=== PATIENT | female | born 1940 | race Caucasian/White ===

== ENCOUNTER 2019-03-26 06:54 | Day surgery (SDC) | payer MEDICARE, OTHER ==
[~2019-03-26 06:54] MED LIST: Lactated Ringers 1,000 ML IV SCH; Lidocaine 1%/Sod Bicarbonate in NS 8.4% 1 ML Syringe IDERM PRN; Sodium Chloride 0.9% 10 ML Syringe FLUSH PRN
--- NOTE | 2019-03-26 07:19 | PCM.PREANE ---
Preanesthetic Assessment - Anesthesia/Transfusion/Family Hx Anesthesia History: Prior Anesthesia Without Reaction Family History of Anesthesia Reaction: No Transfusion History: No Prior Transfusion(s) - Review of Systems General: Other (hx of uterine cancer) Pulmonary: Shortness of Breath (with stairs) Cardiovascular: Other (HTN, AAA, CAD, echo 60-65%, EKG SB with IRBBB, LV hypertrophy) Gastrointestinal: Other (barretts esophagus, hiatal hernia) Neurological: Other (history of CVA) - Physical Assessment NPO Status Date: 03/25/19 NPO Status Time: 20:00 Vital Signs: Last Vital Signs Temp 36.9 C 03/26/19 07:05 Pulse 64 03/26/19 07:05 Resp 16 03/26/19 07:05 BP 153/94 H 03/26/19 07:05 Pulse Ox 96 03/26/19 07:05 Height: 1.57 m Weight: 78.471 kg ASA Class: 3 Mental Status: Alert & Oriented x3 Dentition: Reports: Normal Dentition Thyro-Mental Finger Breadths: 3 Mouth Opening Finger Breadths: 3 ROM/Head Extension: Full Lungs: Clear to Auscultation, Normal Respiratory Effort Cardiovascular: Regular Rate, Regular Rhythm - Allergies Allergies/Adverse Reactions: Allergies Allergy/AdvReac Type Severity Reaction Status Date / Time ezetimibe [From Zetia] Allergy Leg Cramps Verified 03/23/19 10:28 gentamicin [Gentamicin] Allergy Rash Verified 03/23/19 10:28 gluten Allergy Stomach Verified 03/23/19 10:28 Upset rosuvastatin [From Crestor] Allergy Muscle Verified 03/23/19 10:28 Aches Sulfa (Sulfonamide Allergy Cannot Verified 03/23/19 10:28 Antibiotics) Remember - Blood Blood Available: No Product(s) Available: None - Anesthesia Plan Pre-Op Medication Ordered: None - Acknowledgements Anesthesia Type Planned: MAC Pt an Appropriate Candidate for the Planned Anesthesia: Yes Alternatives and Risks of Anesthesia Discussed w Pt/Guardian: Yes Pt/Guardian Understands and Agrees with Anesthesia Plan: Yes PreAnesthesia Questionnaire HEENT History: Reports: Cataract Cardiovascular History: Reports: CAD, High Cholesterol, Hypertension, [place], Other (See Below) Other Cardiovascular History: AAA Respiratory History: Reports: None Gastrointestinal History: Reports: GI Bleed, Hemorrhoids, Hiatal Hernia, Other ( See Below) Other Gastrointestinal History: Asencio's esophagus, gastric polyp, benign fundic gland polyps of stomach Genitourinary History: Reports: None Other OB/BYN History: Uterine endometrial endocarcinoma Musculoskeletal History: Reports: Back Pain, Chronic, Other (See Below) Other Musculoskeletal History: Right lower extremity radicular pain, left plantar fasciitis Neurological History: Reports: CVA, Other (See Below) Other Neuro History: Spinal osteoarthritis with radiculopathy, lumbar DDD, tremors Psychiatric History: Reports: None Endocrine/Metabolic History: Reports: None Hematologic History: Reports: None Immunologic History: Reports: None Oncologic (Cancer) History: Reports: None Dermatologic History: Reports: None - Past Surgical History Head Surgeries/Procedures: Reports: None HEENT Surgical History: Reports: Cataract Surgery Cardiovascular Surgical History: Reports: Other (See Below) Other Cardiovascular Surgeries/Procedures: Heart Cath Respiratory Surgical History: Reports: None GI Surgical History: Reports: Cholecystectomy, Colonoscopy, EGD Female Surgical History: Reports: None Endocrine Surgical History: Reports: None Neurological Surgical History: Reports: None Musculoskeletal Surgical History: Reports: None Oncologic Surgical History: Reports: None Dermatological Surgical History: Reports: None - SUBSTANCE USE Smoking Status *Q: Former Smoker Tobacco Use Within Last Twelve Months: No Second Hand Smoke Exposure: No Recreational Drug Use History: No - HOME MEDS Home Medications: Home Meds Lisinopril 40 mg PO DAILY 03/29/14 [History] Metoprolol Succinate [Toprol XL 50mg] 50 mg PO DAILY 03/29/14 [History] Pantoprazole Sodium 40 mg PO BID 03/29/14 [History] Ranitidine [Zantac] 150 mg PO BID 03/29/14 [History] Nitroglycerin [Nitrostat] 0.4 mg SL Q5M PRN #100 tab.sl 03/30/14 [Rx] Aspirin [Halfprin] 81 mg PO DAILY 03/23/19 [History] Biotears 1 applic OP DAILY 03/23/19 [History] Calcium Carbonate/Vitamin D3 [Calcium 600 + Vit D 200] 1 tab PO BID 03/23/19 [ History] Cholecalciferol (Vitamin D3) [Vitamin D3] 1,000 unit PO BID 03/23/19 [History] Eye Promise 2 tab PO DAILY 03/23/19 [History] Iodoral 1 tab PO Q2D 03/23/19 [History] Isosorbide Mononitrate [Imdur] 30 mg PO BID 03/23/19 [History] L Acidophil/B Lactis/B Longum [Florajen3] 460 mg PO DAILY 03/23/19 [History] Magnesium 250 mg PO BID 03/23/19 [History] Potassium Gluconate [Potassium] 99 mg PO DAILY 03/23/19 [History] Simvastatin [Zocor] 5 mg PO BEDTIME 03/23/19 [History] - CURRENT (IN HOUSE) MEDS Current Meds: Current Medications Lactated Ringer's (Ringers, Lactated) 1,000 mls @ 125 mls/hr IV ASDIRECTED MARYANN Stop: 03/26/19 23:00 Lidocaine/Sodium Bicarbonate (Buffered Lidocaine 1% In Ns 8.4%) 0.25 ml IDERM ONETIME PRN PRN Reason: Prior to IV Start Stop: 03/26/19 18:00 Sodium Chloride (Saline Flush) 10 ml FLUSH ASDIRECTED PRN PRN Reason: Keep Vein Open Stop: 03/26/19 18:00
[2019-03-26] MEDS ORDERED: Propofol 200 MG/20 ML SDV ONE ×2 (07:26→08:55)
[2019-03-26] MEDS ORDERED: Ondansetron 4 MG/2 ML SDV IVPUSH PRN (08:32)
--- NOTE | 2019-03-26 08:32 | PCM48HPAN ---
Post Anesthesia Note - EVALUATION WITHIN 48HRS OF ANESTHETIC Vital Signs in Normal Range: Yes Patient Participated in Evaluation: Yes Respiratory Function Stable: Yes Airway Patent: Yes Cardiovascular Function Stable: Yes Hydration Status Stable: Yes Pain Control Satisfactory: Yes Nausea and Vomiting Control Satisfactory: Yes Mental Status Recovered: Yes Vital Signs: Last Vital Signs Temp 36.9 C 03/26/19 07:05 Pulse 64 03/26/19 07:05 Resp 16 03/26/19 07:05 BP 153/94 H 03/26/19 07:05 Pulse Ox 96 03/26/19 07:05
[2019-03-26 08:33] VITALS: PULSE 58
[2019-03-26 08:58] VITALS: BP 119/73
--- NOTE | 2019-03-27 07:28 | OR ---
DATE OF OPERATION: 03/26/2019 SURGEON: Jake Titus MD PREOPERATIVE DIAGNOSIS: Asencio's esophagus. POSTOPERATIVE DIAGNOSIS: 1. Gastritis. 2. Medium-sized hiatal hernia. 3. Asencio's esophagus. OPERATION PERFORMED: Esophagogastroduodenoscopy with biopsies. ANESTHESIA: Monitored anesthesia care. COMPLICATIONS: None. INDICATIONS AND CONSENT: Ms. Danielle is a 78-year-old old female who was diagnosed with Asencio's esophagus several years ago. Her Asencio's was without any dysplasia, therefore the patient has been followed with interval EGD and biopsies every 3 years. Her last biopsy was in 2017. Therefore, the patient was due for another surveillance esophagogastroduodenoscopy. She presented to my clinic, I evaluated the patient and deemed her a good candidate for the procedure. We discussed the risks, benefits, and alternatives. Risks discussed included bleeding and perforation. The patient understood and agreed to proceed with the procedure. Informed consent was obtained. DESCRIPTION OF PROCEDURE: The patient was taken to the procedure room, placed in left lateral decubitus position. Following induction of monitored anesthesia care, we began the procedure by inserting the esophagogastroduodenoscopy through the mouth all the way down. At about 38 cm from the incisors, there was evidence of Asencio's esophagus. This was traversed. There were no strictures. The stomach was entered as well as the duodenum up to the second portion of duodenum. Duodenum appeared normal. Duodenal bulb appeared normal. Antrum appeared slightly inflamed, therefore biopsies with cold forceps were taken here for H pylori analysis. The retroflexion revealed a medium-sized hiatal hernia, which is likely a sliding-type and upon withdrawal there was again Asencio's esophagus at the GE junction and distal esophagus. We performed biopsies at all 4 quadrants every 1 cm getting a total of 10 samples. These will be sent to the pathologist for evaluation. EBL was minimal. At this point, we put the scope back into the stomach, suctioned air, and withdrew the scope slowly. The rest of the esophagus appeared to be normal. The patient will be discharged home today. The patient will come back to clinic in 2 weeks to discuss the results of the pathology and possible followup. ESTIMATED BLOOD LOSS: MMODAL /[id number]
== END 2019-03-26 09:05 | disposition home or self-care (01) ==
LOC: JD.SDS 06:54
PROVIDERS: ATTEND Surgery
DX: K22.70 Barrett's esophagus without dysplasia (principal); K29.70 Gastritis, unspecified, without bleeding; K44.9 Diaphragmatic hernia without obstruction or gangrene; K29.50 Unspecified chronic gastritis without bleeding; K20.9 Esophagitis, unspecified; K21.9 Gastro-esophageal reflux disease without esophagitis; I10 Essential (primary) hypertension; E78.5 Hyperlipidemia, unspecified; I25.10 Atherosclerotic heart disease of native coronary artery without angina pectoris; E78.00 Pure hypercholesterolemia, unspecified; M51.16 Intervertebral disc disorders with radiculopathy, lumbar region; M47.26 Other spondylosis with radiculopathy, lumbar region; Z90.49 Acquired absence of other specified parts of digestive tract; Z79.82 Long term (current) use of aspirin; Z91.018 Allergy to other foods; Z88.8 Allergy status to other drugs, medicaments and biological substances; Z88.2 Allergy status to sulfonamides; Z87.891 Personal history of nicotine dependence
CPT/HCPCS: 43239; J2704; J7120; 00731

== ENCOUNTER 2019-08-04 01:18 | Emergency (ER) | payer MEDICARE, OTHER ==
[2019-08-04 01:26] VITALS: PULSE 60
[2019-08-04] MEDS ORDERED: Nitroglycerin 0.4 MG Tab.SL SL ONE (02:06)
[2019-08-04 02:15] VITALS: BP 138/69
--- NOTE | 2019-08-04 02:26 | EDM.PDOC ---
ED HPI GENERAL MEDICAL PROBLEM - General Chief Complaint: Chest Pain Stated Complaint: [facility] Time Seen by Provider: 08/04/19 01:27 Source of Information: Reports: Patient, Family History Limitations: Reports: No Limitations - History of Present Illness INITIAL COMMENTS - FREE TEXT/NARRATIVE: Is a 78-year-old female 10 PM this evening when she went to bed she noted an aching sensation in her left lower ribs. It was very fleeting but would continue to come again and again. She also noted that she had a couple minutes of squeezing in her back on that left side as well. She had no sweating, no shortness of breath, no radiation of the squeezing or aching into shoulder the neck area. She complains of little aching in her left ribs even as we talk. 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 Her last stress test was 1 year ago and it was a walking stress test that was normal. Says she does not really feel bad she just has that aching sensation in account of concerns her. She comes to the ER for evaluation. Left Lower Chest Pain Score (Numeric/FACES): 3 - Related Data Allergies Allergy/AdvReac Type Severity Reaction Status Date / Time ezetimibe [From Zetia] Allergy Leg Cramps Verified 08/04/19 01:26 gentamicin [Gentamicin] Allergy Rash Verified 08/04/19 01:26 gluten Allergy Stomach Verified 08/04/19 01:26 Upset rosuvastatin [From Crestor] Allergy Muscle Verified 08/04/19 01:26 Aches Sulfa (Sulfonamide Allergy Cannot Verified 08/04/19 01:26 Antibiotics) Remember Home Meds: Home Meds Lisinopril 40 mg PO DAILY 03/29/14 [History] Metoprolol Succinate [Toprol XL 50mg] 50 mg PO DAILY 03/29/14 [History] Pantoprazole Sodium 40 mg PO BID 03/29/14 [History] Nitroglycerin [Nitrostat] 0.4 mg SL Q5M PRN #100 tab.sl 03/30/14 [Rx] Aspirin [Halfprin] 81 mg PO DAILY 03/23/19 [History] Biotears 1 applic OP DAILY 03/23/19 [History] Calcium Carbonate/Vitamin D3 [Calcium 600 + Vit D 200] 1 tab PO BID 03/23/19 [History] Cholecalciferol (Vitamin D3) [Vitamin D3] 1,000 unit PO BID 03/23/19 [History] Eye Promise 2 tab PO DAILY 03/23/19 [History] Iodoral 1 tab PO Q2D 03/23/19 [History] Isosorbide Mononitrate [Imdur] 30 mg PO BID 03/23/19 [History] L Acidophil/B Lactis/B Longum [Florajen3] 460 mg PO DAILY 03/23/19 [History] Magnesium 250 mg PO BID 03/23/19 [History] Potassium Gluconate [Potassium] 99 mg PO DAILY 03/23/19 [History] Simvastatin [Zocor] 5 mg PO BEDTIME 03/23/19 [History] Famotidine 20 mg PO BID 90 Days #90 tablet 03/26/19 [Rx] Nitroglycerin 0.4 mg SL ASDIRECTED PRN #1 bottle 08/04/19 [Rx] Past Medical History HEENT History: Reports: Cataract Cardiovascular History: Reports: CAD, High Cholesterol, Hypertension, [place], Other (See Below) Other Cardiovascular History: AAA Respiratory History: Reports: None Gastrointestinal History: Reports: GI Bleed, Hemorrhoids, Hiatal Hernia, Other (See Below) Other Gastrointestinal History: Asencio's esophagus, gastric polyp, benign fundic gland polyps of stomach Genitourinary History: Reports: None 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: Uterine endometrial endocarcinoma Musculoskeletal History: Reports: Back Pain, Chronic, Other (See Below) Other Musculoskeletal History: Right lower extremity radicular pain, left plantar fasciitis Neurological History: Reports: CVA, Other (See Below) Other Neuro History: Spinal osteoarthritis with radiculopathy, lumbar DDD, tremors Psychiatric History: Reports: None Endocrine/Metabolic History: Reports: None Hematologic History: Reports: None Immunologic History: Reports: None Oncologic (Cancer) History: Reports: None Dermatologic History: Reports: None - Past Surgical History Head Surgeries/Procedures: Reports: None HEENT Surgical History: Reports: Cataract Surgery Cardiovascular Surgical History: Reports: Other (See Below) Other Cardiovascular Surgeries/Procedures: Heart Cath Respiratory Surgical History: Reports: None GI Surgical History: Reports: Cholecystectomy, Colonoscopy, EGD Female Surgical History: Reports: None Endocrine Surgical History: Reports: None Neurological Surgical History: Reports: None Musculoskeletal Surgical History: Reports: None Oncologic Surgical History: Reports: None Dermatological Surgical History: Reports: None Social & Family History - Tobacco Use Smoking Status *Q: Never Smoker - Caffeine Use Caffeine Use: Reports: Coffee - Recreational Drug Use Recreational Drug Use: No ED ROS GENERAL - Review of Systems Review Of Systems: See Below Constitutional: Denies: Fever, Chills HEENT: Reports: No Symptoms Respiratory: Denies: Shortness of Breath, Cough Cardiovascular: Reports: Chest Pain. Denies: Lightheadedness Endocrine: Reports: No Symptoms GI/Abdominal: Reports: No Symptoms : Reports: No Symptoms Musculoskeletal: Reports: No Symptoms Skin: Reports: No Symptoms Neurological: Reports: No Symptoms Psychiatric: Reports: No Symptoms Hematologic/Lymphatic: Reports: No Symptoms ED EXAM, GENERAL - Physical Exam Exam: See Below Exam Limited By: No Limitations General Appearance: Alert, WD/WN, No Apparent Distress Eye Exam: Bilateral Eye: Normal Inspection Ears: Normal External Exam Nose: Normal Inspection Throat/Mouth: Normal Lips, Normal Voice, No Airway Compromise Head: Normocephalic Neck: Supple Respiratory/Chest: No Respiratory Distress, Lungs Clear, Normal Breath Sounds Cardiovascular: Regular Rate, Rhythm, No Murmur GI/Abdominal: Soft, Non-Tender Back Exam: Full Range of Motion Extremities: Normal Inspection, Normal Range of Motion Neurological: Alert, Oriented Psychiatric: Normal Affect, Normal Mood Skin Exam: Warm, Dry EKG INTERPRETATION EKG Date: 08/04/19 Time: 01:20 EKG Interpretation Comments: EKG shows a sinus rhythm rate of 60. There is no acute ST or T wave changes. There is no ischemia noted. Course - Vital Signs Last Recorded V/S: Last Vital Signs Temp 97.8 F 08/04/19 01:24 Pulse 60 08/04/19 01:24 Resp 16 08/04/19 01:24 BP 138/69 08/04/19 02:13 Pulse Ox 99 08/04/19 01:24 - Orders/Labs/Meds Orders: Active Orders 24 hr Category Date Time Status EKG Documentation Completion [RC] ASDIRECTED Care 08/04/19 01:30 Active Chest 1V Frontal [CR] Stat Exams 08/04/19 01:30 Taken EKG 12 Lead [EK] Stat Ther 08/04/19 01:30 Ordered Labs: Laboratory Tests 08/04/19 08/04/19 08/04/19 Range/Units 01:20 01:20 01:32 WBC 4.22 (3.98-10.04) K/mm3 RBC 4.28 (3.98-5.22) M/mm3 Hgb 13.3 (11.2-15.7) gm/dl Hct 40.6 (34.1-44.9) % MCV 94.9 H (79.4-94.8) fl MCH 31.1 (25.6-32.2) pg MCHC 32.8 (32.2-35.5) g/dl RDW Std Deviation 47.5 H (36.4-46.3) fL Plt Count 220 (182-369) K/mm3 MPV 9.2 L (9.4-12.3) fl Neut % (Auto) 68.6 (34.0-71.1) % Lymph % (Auto) 15.2 L (19.3-51.7) % [place] % (Auto) 12.6 H (4.7-12.5) % Eos % (Auto) 3.1 (0.7-5.8) Baso % (Auto) 0.5 (0.1-1.2) % Neut # (Auto) 2.90 (1.56-6.13) K/mm3 Lymph # (Auto) 0.64 L (1.18-3.74) K/mm3 [place] # (Auto) 0.53 H (0.24-0.36) K/mm3 Eos # (Auto) 0.13 (0.04-0.36) K/mm3 Baso # (Auto) 0.02 (0.01-0.08) K/mm3 Sodium 138 (136-145) mEq/L Potassium 4.1 (3.5-5.1) mEq/L Chloride 101 (98-107) mEq/L Carbon Dioxide 28 (21-32) mEq/L Anion Gap 13.1 (5-15) BUN 19 H (7-18) mg/dL Creatinine 1.0 (0.55-1.02) mg/dL Est Cr Clr Drug Dosing TNP Estimated GFR (MDRD) 54 (>60) mL/min BUN/Creatinine Ratio 19.0 H (14-18) Glucose 106 (83-115) mg/dL Calcium 9.2 (8.5-10.1) mg/dL Total Bilirubin 0.5 (0.2-1.0) mg/dL AST 32 (15-37) U/L ALT 56 (14-59) U/L Alkaline Phosphatase 97 (46-116) U/L Troponin I < 0.017 (0.00-0.056) ng/mL Total Protein 7.7 (6.4-8.2) g/dl Albumin 3.6 (3.4-5.0) g/dl Globulin 4.1 gm/dL Albumin/Globulin Ratio 0.9 L (1-2) Urine Color Yellow (Yellow) Urine Appearance Clear (Clear) Urine pH 7.0 (5.0-8.0) Ur Specific [place] 1.020 (1.005-1.030) Urine Protein Negative (Negative) Urine Glucose (UA) Negative (Negative) Urine Ketones Negative (Negative) Urine Occult Blood Negative (Negative) Urine Nitrite Negative (Negative) Urine Bilirubin Negative (Negative) Urine Urobilinogen 0.2 (0.2-1.0) Ur Leukocyte Esterase 1+ H (Negative) Urine RBC Not seen (0-5) /hpf Urine WBC 5-10 H (0-5) /hpf Ur Epithelial Cells 0-5 (0-5) /hpf Urine Bacteria Rare (FEW) /hpf Urine Mucus Rare (FEW) /hpf 08/04/19 Range/Units 03:24 WBC (3.98-10.04) K/mm3 RBC (3.98-5.22) M/mm3 Hgb (11.2-15.7) gm/dl Hct (34.1-44.9) % MCV (79.4-94.8) fl MCH (25.6-32.2) pg MCHC (32.2-35.5) g/dl RDW Std Deviation (36.4-46.3) fL Plt Count (182-369) K/mm3 MPV (9.4-12.3) fl Neut % (Auto) (34.0-71.1) % Lymph % (Auto) (19.3-51.7) % [place] % (Auto) (4.7-12.5) % Eos % (Auto) (0.7-5.8) Baso % (Auto) (0.1-1.2) % Neut # (Auto) (1.56-6.13) K/mm3 Lymph # (Auto) (1.18-3.74) K/mm3 [place] # (Auto) (0.24-0.36) K/mm3 Eos # (Auto) (0.04-0.36) K/mm3 Baso # (Auto) (0.01-0.08) K/mm3 Sodium (136-145) mEq/L Potassium (3.5-5.1) mEq/L Chloride (98-107) mEq/L Carbon Dioxide (21-32) mEq/L Anion Gap (5-15) BUN (7-18) mg/dL Creatinine (0.55-1.02) mg/dL Est Cr Clr Drug Dosing Estimated GFR (MDRD) (>60) mL/min BUN/Creatinine Ratio (14-18) Glucose (83-115) mg/dL Calcium (8.5-10.1) mg/dL Total Bilirubin (0.2-1.0) mg/dL AST (15-37) U/L ALT (14-59) U/L Alkaline Phosphatase (46-116) U/L Troponin I < 0.017 (0.00-0.056) ng/mL Total Protein (6.4-8.2) g/dl Albumin (3.4-5.0) g/dl Globulin gm/dL Albumin/Globulin Ratio (1-2) Urine Color (Yellow) Urine Appearance (Clear) Urine pH (5.0-8.0) Ur Specific [place] (1.005-1.030) Urine Protein (Negative) Urine Glucose (UA) (Negative) Urine Ketones (Negative) Urine Occult Blood (Negative) Urine Nitrite (Negative) Urine Bilirubin (Negative) Urine Urobilinogen (0.2-1.0) Ur Leukocyte Esterase (Negative) Urine RBC (0-5) /hpf Urine WBC (0-5) /hpf Ur Epithelial Cells (0-5) /hpf Urine Bacteria (FEW) /hpf Urine Mucus (FEW) /hpf Meds: Medications Discontinued Medications Generic Name Dose Route Start Last Admin Trade Name Freq PRN Reason Stop Dose Admin Nitroglycerin 0.4 mg 08/04/19 02:06 08/04/19 02:13 Nitrostat SL 08/04/19 02:07 0.4 mg ONETIME ONE Administration - Radiology Interpretation Free Text/Narrative:: X-ray does not show any acute infiltrates, she does have a calcified aortic arch noted. - Re-Assessments/Exams Free Text/Narrative Re-Assessment/Exam: 08/04/19 04:25 The patient states that the nitroglycerin seemed to resolve that little ache in her left chest rib area. It has not come back and she has been feeling fine. For 2 troponins were absolutely negative her EKG does not show anything acute. I am still somewhat concerned that this could be related to her heart considering her past history. I indicated she needs to follow-up with her doctor this coming week for additional studies to her heart. And if over the weekend things get markedly worse especially with shortness of breath or sweating or nausea or any sort of radiation of pain to her neck or down her arm she needs to return to the ER. The patient states she understands Departure - Departure Time of Disposition: 04:25 Disposition: Home, Self-Care 01 Condition: Fair Clinical Impression: Discomfort of chest wall Prescriptions: Nitroglycerin 0.4 mg SL ASDIRECTED PRN #1 bottle PRN Reason: Pain Instructions: Nonspecific Chest Pain, Adult, [id number] Referrals: PCP,None [Primary Care Provider] - Forms: ED Department Discharge Additional Instructions: Do not do any strenuous work over the weekend and just rest and take it easy, if you get this chest discomfort take the nitroglycerin, however if this chest discomfort gets worse you develop nausea sweating shortness of breath or pain into your jaw or down your left arm return to the ER immediately, follow-up with your family doctor this coming week for recheck and possible additional cardiac studies, return to the ER if needed Sepsis Event Note (ED) - Evaluation Sepsis Screening Result: No Definite Risk - Focused Exam Vital Signs: Vital Signs Temp Pulse Resp BP BP Pulse Ox 08/04/19 02:13 138/69 08/04/19 01:24 97.8 F 60 16 193/103 H 99 - My Orders Last 24 Hours: My Active Orders 08/04/19 01:30 EKG Documentation Completion [RC] ASDIRECTED Chest 1V Frontal [CR] Stat EKG 12 Lead [EK] Stat - Assessment/Plan Last 24 Hours: My Active Orders 08/04/19 01:30 EKG Documentation Completion [RC] ASDIRECTED Chest 1V Frontal [CR] Stat EKG 12 Lead [EK] Stat
--- NOTE | 2019-08-06 10:13 | CR ---
Chest: Portable view of the chest was obtained. Comparison: Prior chest x-ray of 06/23/17. Heart size is within normal limits for portable technique. Tortuous thoracic aorta is noted. Lungs are clear with no acute parenchymal change. Bony structures are grossly intact. Impression: 1. Nothing acute is appreciated on portable chest x-ray. Diagnostic code #1 This report was dictated in MDT
== END 2019-08-04 04:41 | disposition home or self-care (01) ==
LOC: JD.ED 01:18
DX: R07.89 Other chest pain (principal); I10 Essential (primary) hypertension; E78.00 Pure hypercholesterolemia, unspecified; I25.10 Atherosclerotic heart disease of native coronary artery without angina pectoris; I25.2 Old myocardial infarction; Z88.8 Allergy status to other drugs, medicaments and biological substances; Z91.018 Allergy to other foods; Z88.2 Allergy status to sulfonamides; Z88.1 Allergy status to other antibiotic agents; Z79.899 Other long term (current) drug therapy; Z79.82 Long term (current) use of aspirin
CPT/HCPCS: 36415; 71045; 80053; 81001; 84484; 85025; 93005; 99285; A9270

== ENCOUNTER 2019-08-04 22:15 | Emergency (ER) | payer MEDICARE, OTHER ==
[2019-08-04 22:27] VITALS: BP 156/95; PULSE 58
--- NOTE | 2019-08-04 22:49 | EDM.PDOC ---
ED HPI GENERAL MEDICAL PROBLEM - General Chief Complaint: Chest Pain Stated Complaint: [facility] Time Seen by Provider: 08/04/19 22:16 Source of Information: Reports: Patient History Limitations: Reports: No Limitations - History of Present Illness INITIAL COMMENTS - FREE TEXT/NARRATIVE: This is a 78-year-old female. She was seen yesterday in the ER for chest tightness and upper back discomfort. An EKG did not show any acute changes then and her enzymes x2 were negative. She did receive a prescription for some nitroglycerin. Today she was sitting in a chair developed upper back discomfort took 2 nitroglycerin they did not do anything so she called the ambulance and comes back to the ER. She is not short of breath she is not sweating she has no radiation of this pain into her jaw or down her left arm. She does have a history of esophageal reflux and she does state that her upper abdomen has been uncomfortable since she ate lunch today. Presently she has no upper back discomfort and her chest tightness has resolved. She denies any acute symptoms other than the continued esophageal reflux. No history of aortic aneurysm or problems. Middle Chest Pain Score (Numeric/FACES): 2 - Related Data Allergies Allergy/AdvReac Type Severity Reaction Status Date / Time ezetimibe [From Zetia] Allergy Leg Cramps Verified 08/04/19 22:26 gentamicin [Gentamicin] Allergy Rash Verified 08/04/19 22:26 gluten Allergy Stomach Verified 08/04/19 22:26 Upset rosuvastatin [From Crestor] Allergy Muscle Verified 08/04/19 22:26 Aches Sulfa (Sulfonamide Allergy Cannot Verified 08/04/19 22:26 Antibiotics) Remember Home Meds: Home Meds Lisinopril 40 mg PO DAILY 03/29/14 [History] Metoprolol Succinate [Toprol XL 50mg] 50 mg PO DAILY 03/29/14 [History] Pantoprazole Sodium 40 mg PO BID 03/29/14 [History] Nitroglycerin [Nitrostat] 0.4 mg SL Q5M PRN #100 tab.sl 03/30/14 [Rx] Aspirin [Halfprin] 81 mg PO DAILY 03/23/19 [History] Biotears 1 applic OP DAILY 03/23/19 [History] Calcium Carbonate/Vitamin D3 [Calcium 600 + Vit D 200] 1 tab PO BID 03/23/19 [History] Cholecalciferol (Vitamin D3) [Vitamin D3] 1,000 unit PO BID 03/23/19 [History] Eye Promise 2 tab PO DAILY 03/23/19 [History] Iodoral 1 tab PO Q2D 03/23/19 [History] Isosorbide Mononitrate [Imdur] 30 mg PO BID 03/23/19 [History] L Acidophil/B Lactis/B Longum [Florajen3] 460 mg PO DAILY 03/23/19 [History] Magnesium 250 mg PO BID 03/23/19 [History] Potassium Gluconate [Potassium] 99 mg PO DAILY 03/23/19 [History] Simvastatin [Zocor] 5 mg PO BEDTIME 03/23/19 [History] Famotidine 20 mg PO BID 90 Days #90 tablet 03/26/19 [Rx] Nitroglycerin 0.4 mg SL ASDIRECTED PRN #1 bottle 08/04/19 [Rx] Past Medical History HEENT History: Reports: Cataract Cardiovascular History: Reports: CAD, High Cholesterol, Hypertension, LA, Other (See Below) Other Cardiovascular History: AAA Respiratory History: Reports: None Gastrointestinal History: Reports: GI Bleed, Hemorrhoids, Hiatal Hernia, Other (See Below) Other Gastrointestinal History: Asencio's esophagus, gastric polyp, benign fundic gland polyps of stomach Genitourinary History: Reports: None 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: Uterine endometrial endocarcinoma Musculoskeletal History: Reports: Back Pain, Chronic, Other (See Below) Other Musculoskeletal History: Right lower extremity radicular pain, left plantar fasciitis Neurological History: Reports: CVA, Other (See Below) Other Neuro History: Spinal osteoarthritis with radiculopathy, lumbar DDD, tremors Psychiatric History: Reports: None Endocrine/Metabolic History: Reports: None Hematologic History: Reports: None Immunologic History: Reports: None Oncologic (Cancer) History: Reports: None Dermatologic History: Reports: None - Past Surgical History Head Surgeries/Procedures: Reports: None HEENT Surgical History: Reports: Cataract Surgery Cardiovascular Surgical History: Reports: Other (See Below) Other Cardiovascular Surgeries/Procedures: Heart Cath Respiratory Surgical History: Reports: None GI Surgical History: Reports: Cholecystectomy, Colonoscopy, EGD Female Surgical History: Reports: None Endocrine Surgical History: Reports: None Neurological Surgical History: Reports: None Musculoskeletal Surgical History: Reports: None Oncologic Surgical History: Reports: None Dermatological Surgical History: Reports: None Social & Family History - Tobacco Use Smoking Status *Q: Never Smoker Second Hand Smoke Exposure: No - Caffeine Use Caffeine Use: Reports: Coffee - Recreational Drug Use Recreational Drug Use: No ED ROS GENERAL - Review of Systems Review Of Systems: See Below Constitutional: Denies: Fever, Chills HEENT: Reports: No Symptoms Respiratory: Denies: Shortness of Breath, Cough Cardiovascular: Reports: Chest Pain Endocrine: Reports: No Symptoms GI/Abdominal: Reports: Abdominal Pain, Other (Esophageal reflux). Denies: Diarrhea, Nausea, Vomiting : Reports: No Symptoms Musculoskeletal: Reports: Other (Upper back discomfort) Skin: Reports: No Symptoms Neurological: Reports: No Symptoms Psychiatric: Reports: No Symptoms Hematologic/Lymphatic: Reports: No Symptoms ED EXAM, GENERAL - Physical Exam Exam: See Below Exam Limited By: No Limitations General Appearance: Alert, WD/WN, No Apparent Distress Eye Exam: Bilateral Eye: Normal Inspection Ears: Normal External Exam Nose: Normal Inspection Throat/Mouth: Normal Inspection, Normal Lips, Normal Voice, No Airway Compromise Head: Normocephalic Neck: Supple, Other (No bruits are noted) Respiratory/Chest: No Respiratory Distress, Lungs Clear, Normal Breath Sounds Cardiovascular: Regular Rate, Rhythm, No Murmur GI/Abdominal: Soft, Other (No bruits are noted) Back Exam: Other (Her back is nontender on palpation, where she says she has this tightness is between the shoulder blades but the muscles are not tight presently and she denies any tightness now) Extremities: Normal Inspection, Normal Range of Motion Neurological: Alert, Oriented Psychiatric: Normal Affect, Normal Mood Skin Exam: Warm, Dry EKG INTERPRETATION EKG Date: 08/04/19 Time: 22:20 EKG Interpretation Comments: EKG shows a sinus rhythm bradycardia rate of 55, there is no acute ST or T wave changes, no acute ischemia noted, the EKG looks the same as the EKG from earlier this morning at 1:21 AM. Course - Vital Signs Last Recorded V/S: Last Vital Signs Temp 96.9 F 08/04/19 22:22 Pulse 58 L 08/04/19 22:22 Resp 16 08/04/19 22:22 BP 156/95 H 08/04/19 22:22 Pulse Ox 95 08/04/19 22:22 - Orders/Labs/Meds Orders: Active Orders 24 hr Category Date Time Status EKG Documentation Completion [RC] ASDIRECTED Care 08/04/19 22:25 Active Ang Abdomen [CT] Stat Exams 08/04/19 23:20 Taken Ang Chest [CT] Stat Exams 08/04/19 23:20 Taken Chest 2V [CR] Stat Exams 08/04/19 22:39 Taken Sodium Chloride 0.9% [Normal Saline] 100 ml Med 08/04/19 23:30 Active IV ASDIRECTED Sodium Chloride 0.9% [Saline Flush] Med 08/04/19 23:23 Active 10 ml FLUSH ONETIME PRN EKG 12 Lead [EK] Stat Ther 08/04/19 22:25 Ordered Medication Orders Sodium Chloride (Normal Saline) 100 mls @ 80 mls/hr IV ASDIRECTED MARYANN Last Admin: 08/04/19 23:50 Dose: 80 mls/hr Documented by: SULEIMAN Sodium Chloride (Saline Flush) 10 ml FLUSH ONETIME PRN PRN Reason: KEEP VEIN OPEN Last Admin: 08/04/19 23:50 Dose: 10 ml Documented by: SULEIMAN Labs: Laboratory Tests 08/04/19 08/04/19 08/05/19 Range/Units 22:46 22:46 01:10 WBC 3.45 L (3.98-10.04) K/mm3 RBC 3.98 (3.98-5.22) M/mm3 Hgb 12.2 (11.2-15.7) gm/dl Hct 38.0 (34.1-44.9) % MCV 95.5 H (79.4-94.8) fl MCH 30.7 (25.6-32.2) pg MCHC 32.1 L (32.2-35.5) g/dl RDW Std Deviation 47.2 H (36.4-46.3) fL Plt Count 201 (182-369) K/mm3 MPV 8.8 L (9.4-12.3) fl Neut % (Auto) 60.5 (34.0-71.1) % Lymph % (Auto) 17.4 L (19.3-51.7) % [place] % (Auto) 15.1 H (4.7-12.5) % Eos % (Auto) 5.8 (0.7-5.8) Baso % (Auto) 0.9 (0.1-1.2) % Neut # (Auto) 2.09 (1.56-6.13) K/mm3 Lymph # (Auto) 0.60 L (1.18-3.74) K/mm3 [place] # (Auto) 0.52 H (0.24-0.36) K/mm3 Eos # (Auto) 0.20 (0.04-0.36) K/mm3 Baso # (Auto) 0.03 (0.01-0.08) K/mm3 Manual Slide Review Abnormal smear Sodium 137 (136-145) mEq/L Potassium 4.0 (3.5-5.1) mEq/L Chloride 102 (98-107) mEq/L Carbon Dioxide 26 (21-32) mEq/L Anion Gap 13.0 (5-15) BUN 20 H (7-18) mg/dL Creatinine 1.1 H (0.55-1.02) mg/dL Est Cr Clr Drug Dosing TNP Estimated GFR (MDRD) 48 (>60) mL/min BUN/Creatinine Ratio 18.2 H (14-18) Glucose 108 (83-115) mg/dL Calcium 8.9 (8.5-10.1) mg/dL Total Bilirubin 0.4 (0.2-1.0) mg/dL AST 25 (15-37) U/L ALT 36 (14-59) U/L Alkaline Phosphatase 86 (46-116) U/L Troponin I < 0.017 < 0.017 (0.00-0.056) ng/mL Total Protein 7.0 (6.4-8.2) g/dl Albumin 3.3 L (3.4-5.0) g/dl Globulin 3.7 gm/dL Albumin/Globulin Ratio 0.9 L (1-2) Meds: Medications Generic Name Dose Route Start Last Admin Trade Name Freq PRN Reason Stop Dose Admin Sodium Chloride 100 mls @ 80 mls/hr 08/04/19 23:30 08/04/19 23:50 Normal Saline IV 80 mls/hr ASDIRECTED MARYANN Administration Sodium Chloride 10 ml 08/04/19 23:23 08/04/19 23:50 Saline Flush FLUSH 10 ml ONETIME PRN Administration KEEP VEIN OPEN Discontinued Medications Generic Name Dose Route Start Last Admin Trade Name Jonn PRN Reason Stop Dose Admin Iopamidol 100 ml 08/04/19 23:23 08/04/19 23:50 Isovue-370 (76%) IVPUSH 08/04/19 23:24 100 ml ONETIME ONE Administration - Radiology Interpretation Free Text/Narrative:: Chest x-ray shows a normal aortic notch and the x-ray does not appear to be rotated perhaps her descending aorta slightly fusiform. CT scan with nathalie-shows a torturous aorta with mild to moderate atherosclerotic calcifications but no aneurysm and no dissection. She had no pulmonary emboli either. She does have some other findings that are not related to her visit. - Re-Assessments/Exams Free Text/Narrative Re-Assessment/Exam: 08/05/19 02:05 I spoke to the patient and her daughter regarding the CT scan of the chest and abdomen that she does have calcification in the lining of her arteries which she has atherosclerosis and therefore other arteries in her body have the same changes and she needs to follow-up with her family doctor. She needs to have a walking stress test for possible cardiac cath and she also needs to be evaluated for esophageal reflux that might be causing some of the symptoms. In the meantime if things markedly worsen she needs to return to the ER again. Departure - Departure Time of Disposition: 02:06 Disposition: Home, Self-Care 01 Condition: Fair Clinical Impression: Upper back pain, Atypical chest pain Esophageal reflux Qualifiers: Esophagitis presence: without esophagitis Qualified Code(s): K21.9 - Gastro- esophageal reflux disease without esophagitis Referrals: Marielena Redmond MD [Primary Care Provider] - Forms: ED Department Discharge Additional Instructions: Take it easy over the weekend, you must follow-up with your family doctor so he can determine if this back pain is muscle and bone, esophageal reflux, or your heart. We have done CT scans with contrast and check your enzymes and EKGs and so far your heart looks like it is doing okay but you still need to have it checked out. If there is marked worsening of your symptoms then you have to return to the ER again. Sepsis Event Note (ED) - Evaluation Sepsis Screening Result: No Definite Risk - Focused Exam Vital Signs: Vital Signs Temp Pulse Resp BP Pulse Ox 08/04/19 22:22 96.9 F 58 L 16 156/95 H 95 - My Orders Last 24 Hours: My Active Orders 08/04/19 22:25 EKG Documentation Completion [RC] ASDIRECTED EKG 12 Lead [EK] Stat 08/04/19 22:39 Chest 2V [CR] Stat 08/04/19 23:20 Ang Abdomen [CT] Stat Ang Chest [CT] Stat 08/04/19 23:23 Sodium Chloride 0.9% [Saline Flush] 10 ml FLUSH ONETIME PRN 08/04/19 23:30 Sodium Chloride 0.9% [Normal Saline] 100 ml IV ASDIRECTED - Assessment/Plan Last 24 Hours: My Active Orders 08/04/19 22:25 EKG Documentation Completion [RC] ASDIRECTED EKG 12 Lead [EK] Stat 08/04/19 22:39 Chest 2V [CR] Stat 08/04/19 23:20 Ang Abdomen [CT] Stat Ang Chest [CT] Stat 08/04/19 23:23 Sodium Chloride 0.9% [Saline Flush] 10 ml FLUSH ONETIME PRN 08/04/19 23:30 Sodium Chloride 0.9% [Normal Saline] 100 ml IV ASDIRECTED
[2019-08-04] MEDS ORDERED: Sodium Chloride 0.9% 10 ML Syringe FLUSH PRN (23:23)
[2019-08-04] MEDS ORDERED: Iopamidol 755 Mg/ML 100 ML Bottle IVPUSH ONE (23:23)
[2019-08-04] MEDS ORDERED: Sodium Chloride 0.9% 100 ML IV SCH (23:30)
--- NOTE | 2019-08-06 10:13 | CR ---
Chest: PA and lateral views of the chest are obtained. Comparison: Prior chest x-ray of 08/04/19. Heart size is normal. Tortuous thoracic aorta is noted. Mild atelectasis is noted within the lateral left costophrenic angle. Lungs otherwise are clear with no acute parenchymal change. Bony structures show nothing acute. Impression: 1. Slight atelectasis within the left lateral costophrenic angle. 2. Nothing acute is otherwise seen. Diagnostic code #2 This report was dictated in MDT
--- NOTE | 2019-08-06 10:14 | CT ---
CT chest Technique: Multiple axial sections through the chest were obtained. Study continued into the abdomen to above the hips. Contrast was given and is in the arterial phase. Comparison: Prior chest CT of 02/20/19. Findings: Aorta shows mild aneurysmal dilatation of the ascending ascending aorta has an AP dimension of 4.1 cm which is slightly aneurysmal but is stable from previous study. No dissection is seen. Descending aorta measures normal. Visualized pulmonary arteries show no filling defects of pulmonary embolism. Mild atherosclerotic change seen within the coronary arteries. Mediastinum and hilar regions are unremarkable. No pericardial thickening is seen. Mild bibasilar pulmonary fibrosis is seen. 2 air cysts are seen within the left lung with largest measuring 2.5 cm. These findings are stable from previous exam. No acute parenchymal change is seen within either lung. Bone window settings were reviewed which shows scattered degenerative change within the spine. Impression: 1. Slightly aneurysmal ascending aorta at 4.1 cm which is stable in size from previous chest CT. No thoracic aortic dissection is seen. 2. Other chronic findings as noted above. Nothing acute is seen. Diagnostic code #2 This report was dictated in MDT I agree with preliminary report from [facility], finalized on 08/05/19, 1:45 AM Central Daylight Time
--- NOTE | 2019-08-06 10:14 | CT ---
CT abdomen Multiple axial sections were obtained from above the dome of the diaphragm inferiorly to the mid pelvis which ends above the hips. Intravenous contrast was utilized. Study performed as an aortogram exam. Comparison: Prior abdominal and pelvic CT study of 02/20/19. Findings: Aorta shows no aneurysm. No dissection is seen. Mild atherosclerotic change is noted within the aorta and within the iliac vessels. 2 right-sided renal arteries are noted. Mild atherosclerotic change is seen within both right renal arteries. Mild atherosclerotic change is noted within the left renal artery. No hemodynamic significant stenosis is seen. Superior mesenteric artery and celiac axis shows no focal stenosis with mild atherosclerotic change. Inferior mesenteric artery is patent. Liver contains no focal abnormality. Spleen appears within normal limits. Adrenal glands show no nodule. Kidneys show symmetric contrast enhancement. Cyst is noted within the left kidney measuring 1.2 cm. Pancreas shows no discrete abnormality. Prior cholecystectomy is noted. No retroperitoneal adenopathy or mesenteric abnormalities are seen. Bone window settings were reviewed. Degenerative apophyseal change is seen at L4-5 causing mild spondylolisthesis. Scattered disc space narrowing and endplate spurring is noted. Impression: 1. Aorta and branch vessels show no stenosis. Mild scattered atheromatous change is present. 2. Other nonacute findings as noted above. Diagnostic code #2 This report was dictated in MDT I agree with preliminary report from [facility], finalized on 08/05/19, 1:59 AM Central Daylight Time
== END 2019-08-05 02:17 | disposition home or self-care (01) ==
LOC: JD.ED 22:15
DX: R07.89 Other chest pain (principal); K21.9 Gastro-esophageal reflux disease without esophagitis; M54.6 Pain in thoracic spine; I10 Essential (primary) hypertension; E78.00 Pure hypercholesterolemia, unspecified; I25.10 Atherosclerotic heart disease of native coronary artery without angina pectoris; I25.2 Old myocardial infarction; Z88.8 Allergy status to other drugs, medicaments and biological substances; Z91.018 Allergy to other foods; Z88.2 Allergy status to sulfonamides; Z88.1 Allergy status to other antibiotic agents; Z79.899 Other long term (current) drug therapy; Z79.82 Long term (current) use of aspirin; Z91.048 Other nonmedicinal substance allergy status; Z86.73 Personal history of transient ischemic attack (TIA), and cerebral infarction without residual deficits
CPT/HCPCS: 36415; 71045; 71046; 71275; 74175; 80053; 81001; 84484; 85025; 93005; 99285; A9270; J7050; Q9967; 93010

== ENCOUNTER 2019-12-12 11:03 | Inpatient (IN) | payer MEDICARE, OTHER ==
[2019-12-12] MEDS ORDERED: Sodium Chloride 0.9% 10 ML Syringe FLUSH PRN (11:52)
--- NOTE | 2019-12-12 13:11 | CT ---
PROCEDURE INFORMATION: Exam: CT Head Without Contrast Exam date and time: 12/12/2019 11:57 AM Age: 79 years old Clinical indication: Altered mental status/memory loss; Confusion or disorientation; Additional info: Scattered thoughts post head injury; Fell 2 weeks ago TECHNIQUE: Imaging protocol: Computed tomography of the head without contrast. Radiation optimization: All CT scans at this facility use at least one of these dose optimization techniques: automated exposure control; mA and/or kV adjustment per patient size (includes targeted exams where dose is matched to clinical indication); or iterative reconstruction. COMPARISON: No relevant prior studies available. FINDINGS: Brain: No hemorrhage. Unremarkable white matter. No mass effect. Cerebral ventricles: No ventriculomegaly. Bones/joints: Unremarkable. No acute fracture. Paranasal sinuses: Visualized sinuses are unremarkable. No fluid levels. Mastoid air cells: Unremarkable. Soft tissues: Unremarkable. IMPRESSION: No acute intracranial abnormality. Thank you for allowing us to participate in the care of your patient. Dictated and Authenticated by: Michael Linares MD 12/12/2019 1:39 PM Central Time ([place] & [place]) [facility]
[2019-12-12] MEDS ORDERED: Sodium Chloride 0.9% 1,000 ML IV STA (15:41)
--- NOTE | 2019-12-12 15:47 | CR ---
PROCEDURE INFORMATION: Exam: XR Chest, 1 View Exam date and time: 12/12/2019 1:27 PM Age: 79 years old Clinical indication: Other: Elevated troponin TECHNIQUE: Imaging protocol: XR of the chest Views: 1 view. COMPARISON: CT Ang Chest 08/04/2019 11:40 PM FINDINGS: Lungs: No CHF. No consolidation. Pleural space: Unremarkable. No pleural effusion. No pneumothorax. Heart/Mediastinum: Unremarkable. No cardiomegaly. Bones/joints: No acute findings. IMPRESSION: No acute findings. Thank you for allowing us to participate in the care of your patient. Dictated and Authenticated by: Michael Linares MD 12/12/2019 3:18 PM Central Time ([place] & [place]) [facility]
--- NOTE | 2019-12-12 15:48 | CT ---
"PROCEDURE INFORMATION: Exam: CT Angiography Chest With Contrast Exam date and time: 12/12/2019 2:37 PM Age: 79 years old Clinical indication: Abnormal findings; Abnormal diagnostic tests; Elevated d- dimer; Patient HX: Elevated troponin and d-dimer, covid+ TECHNIQUE: Imaging protocol: Computed tomographic angiography of the chest with intravenous contrast. 3D rendering (Not supervised by radiologist): MIP and/or 3D reconstructed images were created by the technologist. Radiation optimization: All CT scans at this facility use at least one of these dose optimization techniques: automated exposure control; mA and/or kV adjustment per patient size (includes targeted exams where dose is matched to clinical indication); or iterative reconstruction. Contrast material: ISOVUE 370; Contrast volume: 80 ml; Contrast route: INTRAVENOUS (IV); COMPARISON: 1. CT Ang Chest 08/04/2019 11:40 PM 2. OT - Chest 1V Frontal 12/12/2019 1:27:20 PM FINDINGS: Pulmonary arteries: No pulmonary emboli. Aorta: Stable minimal dilatation of the ascending thoracic aorta, approximately 4 cm. No aortic dissection. Lungs: No ground-glass opacity, consolidation or mass. Pleural space: No pleural effusion. No pneumothorax. Heart: Minimal cardiomegaly, no pericardial effusion. Lymph nodes: No significant adenopathy. Bones/joints: No acute findings. Soft tissues: Unremarkable. IMPRESSION: BRIIYAHAIRA VAZQUEZA | Final Radiology Report CONFIDENTIALITY STATEMENT This report is intended only for use by the referring physician, and only in accordance with law. If you received this in error, call [phone]. Page 2 of 2 No acute findings. Thank you for allowing us to participate in the care of your patient. Dictated and Authenticated by: Michael Linares MD 12/12/2019 4:04 PM Central Time ([place] & [place]) JOHN"
[2019-12-12] MEDS ORDERED: Aspirin 81 MG Tab.Chew PO ONE (16:47)
--- NOTE | 2019-12-12 18:35 | PCM.HP.2 ---
H&P History of Present Illness - General Date of Service: 12/12/19 Admit Problem/Dx: Admission Diagnosis/Problem Admission Diagnosis/Problem Elevated troponin level Source of Information: Patient History Limitations: Reports: No Limitations - History of Present Illness Initial Comments - Free Text/Narative: 79 year old female with vague complaints of generalized weakness and headache. Additionally stated that she could not concentrate. A SARS-CoV-2 RNA was checked, it was positive. She is not hypoxemic but has elevated cardiac enzymes which will be followed closely. The patient has a history of CAD. She received ASA in the ED. Onset of Symptoms: Reports: Gradual Duration of Symptoms: Reports: Day(s):, Getting Worse Location: Reports: Generalized Severity: Moderate Improves with: Reports: None Worsens with: Reports: None Context: Reports: Sick Contact Associated Symptoms: Reports: Weakness Right Chest Pain Score (Numeric/FACES): 4 - Related Data Allergies/Adverse Reactions: Allergies Allergy/AdvReac Type Severity Reaction Status Date / Time ezetimibe [From Zetia] Allergy Leg Cramps Verified 12/12/19 11:17 gentamicin [Gentamicin] Allergy Rash Verified 12/12/19 11:17 gluten Allergy Stomach Verified 12/12/19 11:17 Upset rosuvastatin [From Crestor] Allergy Muscle Verified 12/12/19 11:17 Aches Sulfa (Sulfonamide Allergy Cannot Verified 12/12/19 11:17 Antibiotics) Remember Home Medications: Home Meds Lisinopril 40 mg PO DAILY 03/29/14 [History] Metoprolol Succinate [Toprol XL 50mg] 50 mg PO DAILY 03/29/14 [History] Pantoprazole Sodium 40 mg PO BID 03/29/14 [History] Nitroglycerin [Nitrostat] 0.4 mg SL Q5M PRN #100 tab.sl 03/30/14 [Rx] Aspirin [Halfprin] 81 mg PO DAILY 03/23/19 [History] Magnesium 250 mg PO BID 03/23/19 [History] Isosorbide Mononitrate [Imdur] 30 mg PO DAILY 12/12/19 [History] Latanoprost/Pf [Latanoprost 0.005% Eye Drop] 1 drop EYEBOTH BEDTIME 12/12/19 [History] Spironolactone [Aldactone] 25 mg PO DAILY 12/12/19 [History] Past Medical History HEENT History: Reports: Cataract Cardiovascular History: Reports: CAD, High Cholesterol, Hypertension, SD, Other (See Below) Other Cardiovascular History: AAA Respiratory History: Reports: None Gastrointestinal History: Reports: GI Bleed, Hemorrhoids, Hiatal Hernia, Other (See Below) Other Gastrointestinal History: Asencio's esophagus, gastric polyp, benign fundic gland polyps of stomach Genitourinary History: Reports: None Other OB/BYN History: Uterine endometrial endocarcinoma Musculoskeletal History: Reports: Back Pain, Chronic, Other (See Below) Other Musculoskeletal History: Right lower extremity radicular pain, left plantar fasciitis Neurological History: Reports: CVA, Other (See Below) Other Neuro History: Spinal osteoarthritis with radiculopathy, lumbar DDD, tremors Psychiatric History: Reports: None Endocrine/Metabolic History: Reports: None Hematologic History: Reports: None Immunologic History: Reports: None Oncologic (Cancer) History: Reports: None Dermatologic History: Reports: None - Past Surgical History Head Surgeries/Procedures: Reports: None HEENT Surgical History: Reports: Cataract Surgery Cardiovascular Surgical History: Reports: Other (See Below) Other Cardiovascular Surgeries/Procedures: Heart Cath Respiratory Surgical History: Reports: None GI Surgical History: Reports: Cholecystectomy, Colonoscopy, EGD Female Surgical History: Reports: None Endocrine Surgical History: Reports: None Neurological Surgical History: Reports: None Musculoskeletal Surgical History: Reports: None Oncologic Surgical History: Reports: None Dermatological Surgical History: Reports: None Social & Family History - Family History Family Medical History: Unobtainable - Tobacco Use Tobacco Use Status *Q: Never Tobacco User - Caffeine Use Caffeine Use: Reports: Coffee H&P Review of Systems - Review of Systems: Review Of Systems: See Below General: Reports: Malaise, Weakness, Decreased Appetite HEENT: Reports: No Symptoms Pulmonary: Reports: Shortness of Breath Cardiovascular: Reports: Chest Pain Gastrointestinal: Reports: No Symptoms Genitourinary: Reports: No Symptoms Musculoskeletal: Reports: No Symptoms Skin: Reports: No Symptoms Psychiatric: Reports: No Symptoms Neurological: Reports: No Symptoms Hematologic/Lymphatic: Reports: No Symptoms Immunologic: Reports: No Symptoms Exam - Exam Exam: See Below - Vital Signs Vital Signs: Last Vital Signs Temp 36.8 C 12/12/19 11:13 Pulse 68 12/12/19 16:30 Resp 16 12/12/19 16:30 BP 154/75 H 12/12/19 13:30 Pulse Ox 93 L 12/12/19 16:30 Weight: 79.379 kg - Exam Quality Assessment: DVT Prophylaxis General: Alert, Oriented, Cooperative HEENT: Conjunctiva Clear, EOMI, Hearing Intact, Pupils Equal, Pupils Reactive, PERRLA Neck: Trachea Midline Lungs: Normal Respiratory Effort, Decreased Breath Sounds Cardiovascular: Regular Rate, Regular Rhythm GI/Abdominal Exam: Normal Bowel Sounds, Soft, Non-Tender (Female) Exam: Deferred Rectal (Female) Exam: Deferred Back Exam: Normal Inspection Extremities: Normal Inspection, Non-Tender, No Pedal Edema, Normal Capillary Refill Skin: Warm, Dry, Intact Neurological: Cranial Nerves Intact, Normal Speech Neuro Extensive - Mental Status: Alert, Oriented x3, Normal Mood/Affect Neuro Extensive - Motor, Sensory, Reflexes: CN II-XII Intact Psychiatric: Alert, Normal Affect, Normal Mood - Patient Data Lab Results Last 24 hrs: Laboratory Results - last 24 hr 12/12/19 12/12/19 12/12/19 Range/Units 12:05 12:05 12:05 WBC 2.34 L* (3.98-10.04) K/mm3 RBC 3.80 L (3.98-5.22) M/mm3 Hgb 11.6 (11.2-15.7) gm/dl Hct 35.7 (34.1-44.9) % MCV 93.9 (79.4-94.8) fl MCH 30.5 (25.6-32.2) pg MCHC 32.5 (32.2-35.5) g/dl RDW Std Deviation 44.7 (36.4-46.3) fL Plt Count 204 (182-369) K/mm3 MPV 8.4 L (9.4-12.3) fl Neut % (Auto) 68.4 (34.0-71.1) % Lymph % (Auto) 15.8 L (19.3-51.7) % [place] % (Auto) 14.1 H (4.7-12.5) % Eos % (Auto) 0.9 (0.7-5.8) Baso % (Auto) 0.4 (0.1-1.2) % Neut # (Auto) 1.60 (1.56-6.13) K/mm3 Lymph # (Auto) 0.37 L (1.18-3.74) K/mm3 [place] # (Auto) 0.33 (0.24-0.36) K/mm3 Eos # (Auto) 0.02 L (0.04-0.36) K/mm3 Baso # (Auto) 0.01 (0.01-0.08) K/mm3 Manual Slide Review Abnormal smear D-Dimer, Quantitative 1.15 H (0.19-0.50) mg/L Sodium 131 L (136-145) mEq/L Potassium 4.4 (3.5-5.1) mEq/L Chloride 98 (98-107) mEq/L Carbon Dioxide 26 (21-32) mEq/L Anion Gap 11.4 (5-15) BUN 14 (7-18) mg/dL Creatinine 0.9 (0.55-1.02) mg/dL Est Cr Clr Drug Dosing 40.09 mL/min Estimated GFR (MDRD) > 60 (>60) mL/min BUN/Creatinine Ratio 15.6 (14-18) Glucose 110 (83-115) mg/dL Calcium 8.9 (8.5-10.1) mg/dL Total Bilirubin 0.3 (0.2-1.0) mg/dL AST 22 (15-37) U/L ALT 28 (14-59) U/L Alkaline Phosphatase 88 (46-116) U/L Troponin I 0.076 H* (0.00-0.056) ng/mL C-Reactive Protein 2.7 H* (<1.0) mg/dL Total Protein 7.1 (6.4-8.2) g/dl Albumin 3.1 L (3.4-5.0) g/dl Globulin 4.0 gm/dL Albumin/Globulin Ratio 0.8 L (1-2) Urine Color (Yellow) Urine Appearance (Clear) Urine pH (5.0-8.0) Ur Specific [place]iva (1.005-1.030) Urine Protein (Negative) Urine Glucose (UA) (Negative) Urine Ketones (Negative) Urine Occult Blood (Negative) Urine Nitrite (Negative) Urine Bilirubin (Negative) Urine Urobilinogen (0.2-1.0) Ur Leukocyte Esterase (Negative) Urine RBC (0-5) /hpf Urine WBC (0-5) /hpf Ur Squamous Epith Cells (0-5) /hpf Urine Bacteria (FEW) /hpf Urine Mucus (FEW) /hpf SARS-CoV-2 RNA (SILVA) (NEGATIVE) 12/12/19 12/12/19 12/12/19 Range/Units 13:24 13:48 14:55 WBC (3.98-10.04) K/mm3 RBC (3.98-5.22) M/mm3 Hgb (11.2-15.7) gm/dl Hct (34.1-44.9) % MCV (79.4-94.8) fl MCH (25.6-32.2) pg MCHC (32.2-35.5) g/dl RDW Std Deviation (36.4-46.3) fL Plt Count (182-369) K/mm3 MPV (9.4-12.3) fl Neut % (Auto) (34.0-71.1) % Lymph % (Auto) (19.3-51.7) % [place] % (Auto) (4.7-12.5) % Eos % (Auto) (0.7-5.8) Baso % (Auto) (0.1-1.2) % Neut # (Auto) (1.56-6.13) K/mm3 Lymph # (Auto) (1.18-3.74) K/mm3 [place] # (Auto) (0.24-0.36) K/mm3 Eos # (Auto) (0.04-0.36) K/mm3 Baso # (Auto) (0.01-0.08) K/mm3 Manual Slide Review D-Dimer, Quantitative (0.19-0.50) mg/L Sodium (136-145) mEq/L Potassium (3.5-5.1) mEq/L Chloride (98-107) mEq/L Carbon Dioxide (21-32) mEq/L Anion Gap (5-15) BUN (7-18) mg/dL Creatinine (0.55-1.02) mg/dL Est Cr Clr Drug Dosing mL/min Estimated GFR (MDRD) (>60) mL/min BUN/Creatinine Ratio (14-18) Glucose (83-115) mg/dL Calcium (8.5-10.1) mg/dL Total Bilirubin (0.2-1.0) mg/dL AST (15-37) U/L ALT (14-59) U/L Alkaline Phosphatase (46-116) U/L Troponin I 0.083 H* (0.00-0.056) ng/mL C-Reactive Protein (<1.0) mg/dL Total Protein (6.4-8.2) g/dl Albumin (3.4-5.0) g/dl Globulin gm/dL Albumin/Globulin Ratio (1-2) Urine Color Yellow (Yellow) Urine Appearance Clear (Clear) Urine pH 7.0 (5.0-8.0) Ur Specific Riva 1.020 (1.005-1.030) Urine Protein Negative (Negative) Urine Glucose (UA) Negative (Negative) Urine Ketones Negative (Negative) Urine Occult Blood Negative (Negative) Urine Nitrite Negative (Negative) Urine Bilirubin Negative (Negative) Urine Urobilinogen 0.2 (0.2-1.0) Ur Leukocyte Esterase Negative (Negative) Urine RBC 0-5 (0-5) /hpf Urine WBC 0-5 (0-5) /hpf Ur Squamous Epith Cells 0-5 (0-5) /hpf Urine Bacteria Few (FEW) /hpf Urine Mucus Not seen (FEW) /hpf SARS-CoV-2 RNA (SILVA) Positive H (NEGATIVE) Result Diagrams: 12/12/19 12:05 12/12/19 12:05 Sepsis Event Note - Evaluation Sepsis Screening Result: No Definite Risk - Focused Exam Vital Signs: Vital Signs Temp Pulse Resp BP Pulse Ox 12/12/19 16:30 68 16 93 L 12/12/19 13:30 70 16 154/75 H 97 12/12/19 11:13 36.8 C 68 16 175/88 H 97 - Problem List (1) COVID-19 SNOMED Code(s): 763971966 ICD Code: U07.1 - COVID-19 Status: Acute Current Visit: Yes (2) Esophageal reflux SNOMED Code(s): 977464327 ICD Code: K21.9 - GASTRO-ESOPHAGEAL REFLUX DISEASE WITHOUT ESOPHAGITIS Stat us: Chronic Current Visit: No Qualifiers: Esophagitis presence: without esophagitis Qualified Code(s): K21.9 - Gastro-esophageal reflux disease without esophagitis (3) Angina SNOMED Code(s): 816721146 ICD Code: I20.9 - ANGINA PECTORIS, UNSPECIFIED Status: Chronic Current Visit: No Problem List Initiated/Reviewed/Updated: Yes Orders Last 24hrs: Active Orders 24 hr Category Date Time Status Patient Status [ADT] Routine ADT 12/12/19 17:35 Active EKG 12 Lead [EKG Documentation Completion] [] ROUTINE Care 12/12/19 11:16 Active EKG 12 Lead [EKG Documentation Completion] [] ROUTINE Care 12/12/19 15:00 A ctive Peripheral IV Care [] . DIRECTED Care 12/12/19 11:53 Active Sodium Chloride 0.9% [Normal Saline] 1,000 ml Med 12/12/19 15:41 Active IV NOW Sodium Chloride 0.9% [Saline Flush] Med 12/12/19 11:52 Active 10 ml FLUSH ASDIRECTED PRN Peripheral IV Insertion Adult [OM.PC] Stat Oth 12/12/19 11:52 Ordered Medication Orders Sodium Chloride (Normal Saline) 1,000 mls @ 150 mls/hr IV NOW STA Stop: 12/12/19 22:20 Last Admin: 12/12/19 16:19 Dose: 150 mls/hr Documented by: PAWEL Sodium Chloride (Saline Flush) 10 ml FLUSH ASDIRECTED PRN PRN Reason: Keep Vein Open Last Admin: 12/12/19 11:54 Dose: 10 ml Documented by: PAWEL Assessment/Plan Comment:: Impression: SARS-CoV-2 RNA AAA, positive; Covid-19 without hypoxemia Elevated Rianna; type II, SD History of CAD Chronic HTN HLD Plan: Trend cardiac enzymes ASA 81 mg daily No need for Plavix No need for UFH gtt DVT prophylaxis Supportive care. Tylenol as needed. - Mortality Measure Prognosis:: Good
[2019-12-12] MEDS ORDERED: Nitroglycerin 0.4 MG Tab.SL SL PRN (18:47)
--- NOTE | 2019-12-12 18:49 | EDM.PDOC ---
ED HPI GENERAL MEDICAL PROBLEM - General Chief Complaint: General Stated Complaint: [facility] Time Seen by Provider: 12/12/19 11:13 Source of Information: Reports: Patient, RN Notes Reviewed History Limitations: Reports: No Limitations - History of Present Illness INITIAL COMMENTS - FREE TEXT/NARRATIVE: Patient is a 79-year-old female presenting to the emergency department with complaints of "her brain not working right ". She has a hard time describing what she means when she says this, however after much probing, she states that she essentially felt scatterbrained. She could not get her thoughts straight. She does not feel like she was really confused. She is alert and oriented at this time. She denies any dizziness or headache. States she did feel mildly nauseous at the time of this occurrence. She reports that she had fallen 2 weeks ago and hit her head. She is experienced intermittent headaches since that time. She denies any chest pain, shortness of breath, vomiting, diarrhea, fever, or chills. She has a past medical history significant for coronary artery disease with ND in 1995. Denies any cardiac events since that time. Onset: Gradual Duration: Day(s):, Getting Worse Location: Reports: Chest, Generalized Severity: Moderate Improves with: Reports: None Worsens with: Reports: None Associated Symptoms: Reports: Chest Pain, Cough, Malaise, Shortness of Breath, Weakness Right Chest Pain Score (Numeric/FACES): 4 - Related Data Allergies Allergy/AdvReac Type Severity Reaction Status Date / Time ezetimibe [From Zetia] Allergy Leg Cramps Verified 12/12/19 21:49 gentamicin [Gentamicin] Allergy Rash Verified 12/12/19 21:49 gluten Allergy Stomach Verified 12/12/19 21:49 Upset rosuvastatin [From Crestor] Allergy Muscle Verified 12/12/19 21:49 Aches Sulfa (Sulfonamide Allergy Cannot Verified 12/12/19 21:49 Antibiotics) Remember Home Meds: Home Meds Lisinopril 40 mg PO DAILY 03/29/14 [History] Metoprolol Succinate [Toprol XL 50mg] 50 mg PO DAILY 03/29/14 [History] Pantoprazole Sodium 40 mg PO BID 03/29/14 [History] Nitroglycerin [Nitrostat] 0.4 mg SL Q5M PRN #100 tab.sl 03/30/14 [Rx] Aspirin [Halfprin] 81 mg PO DAILY 03/23/19 [History] Magnesium 250 mg PO BID 03/23/19 [History] Isosorbide Mononitrate [Imdur] 30 mg PO DAILY 12/12/19 [History] Latanoprost/Pf [Latanoprost 0.005% Eye Drop] 1 drop EYEBOTH BEDTIME 12/12/19 [History] Spironolactone [Aldactone] 25 mg PO DAILY 12/12/19 [History] Acetaminophen [Tylenol] 650 mg PO Q6H PRN tablet 12/13/19 [Rx] Past Medical History HEENT History: Reports: Cataract Cardiovascular History: Reports: CAD, High Cholesterol, Hypertension, ND, Other (See Below) Other Cardiovascular History: AAA Respiratory History: Reports: None Gastrointestinal History: Reports: GI Bleed, Hemorrhoids, Hiatal Hernia, Other (See Below) Other Gastrointestinal History: Asencio's esophagus, gastric polyp, benign fundic gland polyps of stomach Genitourinary History: Reports: None Other [employer] WORK[employer] History: Uterine endometrial endocarcinoma Musculoskeletal History: Reports: Back Pain, Chronic, Other (See Below) Other Musculoskeletal History: Right lower extremity radicular pain, left plantar fasciitis Neurological History: Reports: CVA, Other (See Below) Other Neuro History: Spinal osteoarthritis with radiculopathy, lumbar DDD, tremors Psychiatric History: Reports: None Endocrine/Metabolic History: Reports: None Hematologic History: Reports: None Immunologic History: Reports: None Oncologic (Cancer) History: Reports: None Dermatologic History: Reports: None - Past Surgical History Head Surgeries/Procedures: Reports: None HEENT Surgical History: Reports: Cataract Surgery Cardiovascular Surgical History: Reports: Other (See Below) Other Cardiovascular Surgeries/Procedures: Heart Cath Respiratory Surgical History: Reports: None GI Surgical History: Reports: Cholecystectomy, Colonoscopy, EGD Female Surgical History: Reports: None Endocrine Surgical History: Reports: None Neurological Surgical History: Reports: None Musculoskeletal Surgical History: Reports: None Oncologic Surgical History: Reports: None Dermatological Surgical History: Reports: None Social & Family History - Family History Family Medical History: Unobtainable - Tobacco Use Tobacco Use Status *Q: Never Tobacco User - Caffeine Use Caffeine Use: Reports: Coffee ED ROS GENERAL - Review of Systems Review Of Systems: See Below Constitutional: Reports: No Symptoms. Denies: Fever, Chills, Weakness, Fatigue HEENT: Reports: No Symptoms Respiratory: Reports: No Symptoms. Denies: Shortness of Breath, Cough Cardiovascular: Reports: No Symptoms. Denies: Chest Pain, Dyspnea on Exertion, Lightheadedness, Syncope Endocrine: Reports: No Symptoms GI/Abdominal: Reports: Nausea. Denies: Abdominal Pain, Diarrhea, Vomiting : Reports: No Symptoms Musculoskeletal: Reports: No Symptoms Skin: Reports: No Symptoms Neurological: Reports: Other (Difficulty getting her thoughts straight "scatterbrained".). Denies: Confusion, Dizziness, Headache, Numbness, Paresthesia, Trouble Speaking, Difficulty Walking, Weakness, Change in Speech Psychiatric: Reports: Anxiety Hematologic/Lymphatic: Reports: No Symptoms Immunologic: Reports: No Symptoms ED EXAM, GENERAL - Physical Exam Exam: See Below General Appearance: Alert, WD/WN, No Apparent Distress Eye Exam: Bilateral Eye: PERRL Respiratory/Chest: No Respiratory Distress, Lungs Clear, Normal Breath Sounds, No Accessory Muscle Use, Chest Non-Tender Cardiovascular: Normal Peripheral Pulses, Regular Rate, Rhythm, No Edema, No Gallop, No JVD, No Murmur, No Rub GI/Abdominal: Normal Bowel Sounds, Soft, Non-Tender Back Exam: Normal Inspection Extremities: Normal Inspection, Non-Tender, No Pedal Edema, Normal Capillary Refill Neurological: Alert, Oriented, CN II-XII Intact, Normal Cognition, Normal Gait, Normal Reflexes, No Motor/Sensory Deficits Psychiatric: Normal Affect, Normal Mood Skin Exam: Warm, Dry, Intact, Normal Color, No Rash #1 Interpretation EKG Date: 12/12/19 Time: 11:16 Rhythm: NSR Rate (Beats/Min): 66 [place]: Normal P-Wave: Present QRS: RBBB (incomplete) ST-T: Normal QT: Normal #2 Interpretation EKG Date: 12/12/19 Time: 15:04 Rhythm: NSR Rate (Beats/Min): 64 [place]: Normal P-Wave: Present QRS: RBBB (incomplete) ST-T: Normal QT: Normal Course - Vital Signs Last Recorded V/S: Last Vital Signs Temp 98.2 F 12/13/19 13:45 Pulse 68 12/13/19 13:45 Resp 16 12/13/19 13:45 BP 116/84 12/13/19 13:45 Pulse Ox 99 12/13/19 13:45 - Orders/Labs/Meds Orders: Medication Orders Acetaminophen (Tylenol) 650 mg PO Q6H PRN PRN Reason: Pain/Fever Last Admin: 12/13/19 08:32 Dose: 650 mg Documented by: RENY Aspirin (Ecotrin) 325 mg PO DAILY [facility] Last Admin: 12/13/19 08:33 Dose: 325 mg Documented by: RENY Enoxaparin Sodium (Lovenox) 40 mg SUBCUT DAILY [facility] Last Admin: 12/13/19 08:32 Dose: 40 mg Documented by: RENY Isosorbide Mononitrate (Imdur) 30 mg PO DAILY [facility] Last Admin: 12/13/19 08:34 Dose: 30 mg Documented by: RENY Latanoprost (Xalatan 0.005% Ophth Soln) 0 ml EYEBOTH BEDTIME [facility] Last Admin: 12/12/19 21:30 Dose: Not Given Documented by: RAMESH Magnesium Oxide (Magnesium Oxide) 400 mg PO DAILY [facility] Last Admin: 12/13/19 08:33 Dose: 400 mg Documented by: RENY Metoprolol Succinate (Toprol Xl) 50 mg PO DAILY [facility] Last Admin: 12/13/19 08:34 Dose: 50 mg Documented by: RENY Nitroglycerin (Nitrostat) 0.4 mg SL Q5M PRN PRN Reason: Chest Pain Pantoprazole Sodium (Protonix) 40 mg PO BID [facility] Last Admin: 12/13/19 08:34 Dose: 40 mg Documented by: Admin: 12/12/19 23:54 Dose: Not Given Documented by: RAMESH Sodium Chloride (Saline Flush) 10 ml FLUSH ASDIRECTED PRN PRN Reason: Keep Vein Open Last Admin: 12/12/19 11:54 Dose: 10 ml Documented by: PAWEL Spironolactone (Aldactone) 25 mg PO DAILY [facility] Last Admin: 12/13/19 08:33 Dose: 25 mg Documented by: RENY Zolpidem Tartrate (Ambien) 5 mg PO BEDTIME PRN PRN Reason: Insomnia Labs: Laboratory Tests 12/12/19 12/12/19 12/12/19 Range/Units 12:05 12:05 12:05 WBC 2.34 L* (3.98-10.04) K/mm3 RBC 3.80 L (3.98-5.22) M/mm3 Hgb 11.6 (11.2-15.7) gm/dl Hct 35.7 (34.1-44.9) % MCV 93.9 (79.4-94.8) fl MCH 30.5 (25.6-32.2) pg MCHC 32.5 (32.2-35.5) g/dl RDW Std Deviation 44.7 (36.4-46.3) fL Plt Count 204 (182-369) K/mm3 MPV 8.4 L (9.4-12.3) fl Neut % (Auto) 68.4 (34.0-71.1) % Lymph % (Auto) 15.8 L (19.3-51.7) % [place] % (Auto) 14.1 H (4.7-12.5) % Eos % (Auto) 0.9 (0.7-5.8) Baso % (Auto) 0.4 (0.1-1.2) % Neut # (Auto) 1.60 (1.56-6.13) K/mm3 Lymph # (Auto) 0.37 L (1.18-3.74) K/mm3 [place] # (Auto) 0.33 (0.24-0.36) K/mm3 Eos # (Auto) 0.02 L (0.04-0.36) K/mm3 Baso # (Auto) 0.01 (0.01-0.08) K/mm3 Manual Slide Review Abnormal smear D-Dimer, Quantitative 1.15 H (0.19-0.50) mg/L Sodium 131 L (136-145) mEq/L Potassium 4.4 (3.5-5.1) mEq/L Chloride 98 (98-107) mEq/L Carbon Dioxide 26 (21-32) mEq/L Anion Gap 11.4 (5-15) BUN 14 (7-18) mg/dL Creatinine 0.9 (0.55-1.02) mg/dL Est Cr Clr Drug Dosing 40.09 mL/min Estimated GFR (MDRD) > 60 (>60) mL/min BUN/Creatinine Ratio 15.6 (14-18) Glucose 110 (83-115) mg/dL Calcium 8.9 (8.5-10.1) mg/dL Total Bilirubin 0.3 (0.2-1.0) mg/dL AST 22 (15-37) U/L ALT 28 (14-59) U/L Alkaline Phosphatase 88 (46-116) U/L Troponin I 0.076 H* (0.00-0.056) ng/mL C-Reactive Protein 2.7 H* (<1.0) mg/dL Total Protein 7.1 (6.4-8.2) g/dl Albumin 3.1 L (3.4-5.0) g/dl Globulin 4.0 gm/dL Albumin/Globulin Ratio 0.8 L (1-2) Urine Color (Yellow) Urine Appearance (Clear) Urine pH (5.0-8.0) Ur Specific [place] (1.005-1.030) Urine Protein (Negative) Urine Glucose (UA) (Negative) Urine Ketones (Negative) Urine Occult Blood (Negative) Urine Nitrite (Negative) Urine Bilirubin (Negative) Urine Urobilinogen (0.2-1.0) Ur Leukocyte Esterase (Negative) Urine RBC (0-5) /hpf Urine WBC (0-5) /hpf Ur Squamous Epith Cells (0-5) /hpf Urine Bacteria (FEW) /hpf Urine Mucus (FEW) /hpf SARS-CoV-2 RNA (SILVA) (NEGATIVE) 12/12/19 12/12/19 12/12/19 Range/Units 13:24 13:48 14:55 WBC (3.98-10.04) K/mm3 RBC (3.98-5.22) M/mm3 Hgb (11.2-15.7) gm/dl Hct (34.1-44.9) % MCV (79.4-94.8) fl MCH (25.6-32.2) pg MCHC (32.2-35.5) g/dl RDW Std Deviation (36.4-46.3) fL Plt Count (182-369) K/mm3 MPV (9.4-12.3) fl Neut % (Auto) (34.0-71.1) % Lymph % (Auto) (19.3-51.7) % [place] % (Auto) (4.7-12.5) % Eos % (Auto) (0.7-5.8) Baso % (Auto) (0.1-1.2) % Neut # (Auto) (1.56-6.13) K/mm3 Lymph # (Auto) (1.18-3.74) K/mm3 [place] # (Auto) (0.24-0.36) K/mm3 Eos # (Auto) (0.04-0.36) K/mm3 Baso # (Auto) (0.01-0.08) K/mm3 Manual Slide Review D-Dimer, Quantitative (0.19-0.50) mg/L Sodium (136-145) mEq/L Potassium (3.5-5.1) mEq/L Chloride (98-107) mEq/L Carbon Dioxide (21-32) mEq/L Anion Gap (5-15) BUN (7-18) mg/dL Creatinine (0.55-1.02) mg/dL Est Cr Clr Drug Dosing mL/min Estimated GFR (MDRD) (>60) mL/min BUN/Creatinine Ratio (14-18) Glucose (83-115) mg/dL Calcium (8.5-10.1) mg/dL Total Bilirubin (0.2-1.0) mg/dL AST (15-37) U/L ALT (14-59) U/L Alkaline Phosphatase (46-116) U/L Troponin I 0.083 H* (0.00-0.056) ng/mL C-Reactive Protein (<1.0) mg/dL Total Protein (6.4-8.2) g/dl Albumin (3.4-5.0) g/dl Globulin gm/dL Albumin/Globulin Ratio (1-2) Urine Color Yellow (Yellow) Urine Appearance Clear (Clear) Urine pH 7.0 (5.0-8.0) Ur Specific [place] 1.020 (1.005-1.030) Urine Protein Negative (Negative) Urine Glucose (UA) Negative (Negative) Urine Ketones Negative (Negative) Urine Occult Blood Negative (Negative) Urine Nitrite Negative (Negative) Urine Bilirubin Negative (Negative) Urine Urobilinogen 0.2 (0.2-1.0) Ur Leukocyte Esterase Negative (Negative) Urine RBC 0-5 (0-5) /hpf Urine WBC 0-5 (0-5) /hpf Ur Squamous Epith Cells 0-5 (0-5) /hpf Urine Bacteria Few (FEW) /hpf Urine Mucus Not seen (FEW) /hpf SARS-CoV-2 RNA (SILVA) Positive H (NEGATIVE) Meds: Medications Generic Name Dose Route Start Last Admin Trade Name Alvinoq PRN Reason Stop Dose Admin Acetaminophen 650 mg 12/12/19 18:53 12/13/19 08:32 Tylenol PO 650 mg Q6H PRN Administration Pain/Fever Aspirin 325 mg 12/13/19 09:00 12/13/19 08:33 Ecotrin PO 325 mg DAILY MARYANN Administration Enoxaparin Sodium 40 mg 12/13/19 09:00 12/13/19 08:32 Lovenox SUBCUT 40 mg DAILY MARYANN Administration Isosorbide Mononitrate 30 mg 12/13/19 09:00 12/13/19 08:34 Imdur PO 30 mg DAILY MARYANN Administration Latanoprost 0 ml 12/12/19 21:00 12/12/19 21:30 Xalatan 0.005% Ophth Soln EYEBOTH Not Given BEDTIME MARYANN Magnesium Oxide 400 mg 12/13/19 09:00 12/13/19 08:33 Magnesium Oxide PO 400 mg DAILY MARYANN Administration Metoprolol Succinate 50 mg 12/13/19 09:00 12/13/19 08:34 Toprol Xl PO 50 mg DAILY MARYANN Administration Nitroglycerin 0.4 mg 12/12/19 18:47 Nitrostat SL Q5M PRN Chest Pain Pantoprazole Sodium 40 mg 12/12/19 21:00 12/13/19 08:34 Protonix PO 40 mg BID MARYANN Administration Sodium Chloride 10 ml 12/12/19 11:52 12/12/19 11:54 Saline Flush FLUSH 10 ml ASDIRECTED PRN Administration Keep Vein Open Spironolactone 25 mg 12/13/19 09:00 12/13/19 08:33 Aldactone PO 25 mg DAILY MARYANN Administration Zolpidem Tartrate 5 mg 12/12/19 18:54 Ambien PO BEDTIME PRN Insomnia Discontinued Medications Generic Name Dose Route Start Last Admin Trade Name Freq PRN Reason Stop Dose Admin Aspirin 324 mg 12/12/19 16:47 12/12/19 17:24 Aspirin PO 12/12/19 16:48 324 mg ONETIME ONE Administration Sodium Chloride 1,000 mls @ 150 mls/hr 12/12/19 15:41 12/12/19 16:19 Normal Saline IV 12/12/19 22:20 150 mls/hr NOW STA Administration - Re-Assessments/Exams Free Text/Narrative Re-Assessment/Exam: Patient is a 79-year-old female presenting to the emergency department with some quite generalized and nonspecific symptoms. She states that she felt like she had difficulty getting her thoughts straight or was "scatterbrained "upon waking this morning. She also felt nauseous. She denies any headache, dizziness, or focal neurologic deficits. She did fall 2 weeks ago and hit her head has had some intermittent headaches since then but denies a headache today. She has had no chest pain or shortness of breath. Her examination is grossly unremarkable. Neurologic exam is normal. We will complete an overall work-up including head CT, CBC, CMP, CRP, troponin, D-dimer, urinalysis, chest x-ray, and EKG. 12/12/19 1430 Hematology was significant for WBC slightly low at 2.34, D-dimer elevated at 1.15, sodium 131, troponin 0 0.083, CRP 2.7. Patient continues to deny any chest pain. I did consult with cardiology at [facility], Dr. Gurrola. She recommended that we repeat a troponin in 3 hours. If it decreases, no further examination is needed. I have ordered a Covid test for the patient as her WBCs are slightly low and she has some elevation in her D-dimer as well as her CRP. Also ordered a CT angiogram of the chest to rule out PE in light of her elevated troponin and positive D-dimer. 12/12/19 1530 Patient's repeat troponin after 3 hours had increased to 0.083. I have ordered aspirin [address] angiogram of the chest was negative for PE. I have contacted both hospitals in [place] unfortunately have no available beds. [facility] took the patient's information down and will call me back re garding possible transfer due to elevated troponins. 12/12/19 1700 While waiting for callback from [facility], we did have a bed become available with our facility due to a discharge. Case has been discussed with hospitalist, Dr. Cruz. She will admit the patient to trend troponins and monitor. Patient is in agreement with this plan. Daughter Juliette has been updated as well. Departure - Departure Time of Disposition: 17:00 Disposition: Admitted As Inpatient 66 Condition: Good Clinical Impression: COVID-19, Troponin level elevated - Discharge Information Sepsis Event Note (ED) - Evaluation Sepsis Screening Result: No Definite Risk
[2019-12-12] MEDS ORDERED: Acetaminophen 325 MG Tab PO PRN (18:53)
[2019-12-12] MEDS ORDERED: Zolpidem 5 MG Tab PO PRN (18:54)
[2019-12-12] MEDS ORDERED: Latanoprost 0.005% Ophth Soln 2.5 ML Bottle EYEBOTH SCH (21:00)
[2019-12-12] MEDS: Pantoprazole 40 MG Tab.CR PO SCH (23:54)
[2019-12-13] MEDS: Pantoprazole 40 MG Tab.CR PO SCH (08:34)
[2019-12-13] MEDS ORDERED: Spironolactone 25 MG Tab PO SCH (09:00)
[2019-12-13] MEDS ORDERED: Aspirin 325 MG Tab.EC PO SCH (09:00)
[2019-12-13] MEDS ORDERED: Enoxaparin 40 MG/0.4 ML Syringe SUBCUT SCH (09:00)
[2019-12-13] MEDS ORDERED: Magnesium Oxide 400 MG Tab PO SCH (09:00)
[2019-12-13] MEDS ORDERED: Isosorbide Mononitrate 30 MG Tab.ER PO SCH (09:00)
[2019-12-13] MEDS ORDERED: Metoprolol Succinate 50 MG Tab.ER PO SCH (09:00)
[2019-12-13 13:54] VITALS: BP 116/84; PULSE 68
--- NOTE | 2019-12-13 14:22 | PCM.DCSUM1 ---
Discharge Summary - Hospital Course Free Text/Narrative:: 79 year old female with type II OH d/t viral PNA (Covid-19). The patient was admitted for monitoring of cardiac enzymes. She has Covid-19 PNA without hypoxemia. The patient is without CP, SOB, but has had mild forgetfulness. She is currently afebrile. Hemodynamically, she remains stable. HPI Initial Comments: Cardiac enzymes discussed with [facility], troponin trend noted with elevation d/t infection. Patient had an uneventful stay with close cardiac monitoring. Oxygen was not required during the hospitalization. Will be DCd and needs PCP follow up in 2 weeks. Will need to quaratine for 2 weeks. Repeat ca rdiac enzyme will be requested. Diagnosis: Stroke: No - Discharge Data Discharge Date: 12/13/19 Discharge Disposition: Home, Self-Care 01 Condition: Good - Referral to Home Health Primary Care Physician: Marielena Redmond MD - Discharge Diagnosis/Problem(s) (1) COVID-19 SNOMED Code(s): 587843126 ICD Code: U07.1 - COVID-19 Status: Acute Current Visit: Yes (2) Esophageal reflux SNOMED Code(s): 002402512 ICD Code: K21.9 - GASTRO-ESOPHAGEAL REFLUX DISEASE WITHOUT ESOPHAGITIS Status: Chronic Current Visit: No Qualifiers: Esophagitis presence: without esophagitis Qualified Code(s): K21.9 - Gastro-esophageal reflux disease without esophagitis (3) Angina SNOMED Code(s): 233130389 ICD Code: I20.9 - ANGINA PECTORIS, UNSPECIFIED Status: Chronic Current Visit: No (4) Troponin level elevated SNOMED Code(s): 357144493, 457990842, 186418189 ICD Code: R77.8 - OTHER SPECIFIED ABNORMALITIES OF PLASMA PROTEINS Status: Acute Current Visit: Yes - Patient Summary/Data Hospital Course: Monitored the cardiac enzymes, O2 requirements in the setting of Covid-19 PNA. Patient is afebrile, has good O2 saturation, and has no new complaints. Will be DCd on home meds. Lab follow up will be cardiac enzyme. - Patient Instructions Diet: Usual Diet as Tolerated - Discharge Plan Home Medications: Home Meds Lisinopril 40 mg PO DAILY 03/29/14 [History] Metoprolol Succinate [Toprol XL 50mg] 50 mg PO DAILY 03/29/14 [History] Pantoprazole Sodium 40 mg PO BID 03/29/14 [History] Nitroglycerin [Nitrostat] 0.4 mg SL Q5M PRN #100 tab.sl 03/30/14 [Rx] Aspirin [Halfprin] 81 mg PO DAILY 03/23/19 [History] Magnesium 250 mg PO BID 03/23/19 [History] Isosorbide Mononitrate [Imdur] 30 mg PO DAILY 12/12/19 [History] Latanoprost/Pf [Latanoprost 0.005% Eye Drop] 1 drop EYEBOTH BEDTIME 12/12/19 [History] Spironolactone [Aldactone] 25 mg PO DAILY 12/12/19 [History] Acetaminophen [Tylenol] 650 mg PO Q6H PRN tablet 12/13/19 [Rx] Forms: ED Department Discharge Referrals: Marielena Redmond MD [Primary Care Provider] - - Discharge Summary/Plan Comment DC Time >30 min.: No Discharge Summary/Plan Comment: Supportive care for Covid-19 PNA without hypoxemia. Cardiac enzyme monitoring per [facility]. DC home, will need 2 week follow up with PCP, Dr Price. - General Info Date of Service: 12/12/19 Functional Status: Reports: Tolerating Diet, Ambulating, Urinating - Review of Systems General: Reports: No Symptoms HEENT: Reports: No Symptoms Pulmonary: Reports: No Symptoms Cardiovascular: Reports: No Symptoms Gastrointestinal: Reports: No Symptoms Genitourinary: Reports: No Symptoms Musculoskeletal: Reports: No Symptoms Skin: Reports: No Symptoms Neurological: Reports: Headache Psychiatric: Reports: No Symptoms - Patient Data Vitals - Most Recent: Last Vital Signs Temp 36.8 C 12/13/19 13:45 Pulse 68 12/13/19 13:45 Resp 16 12/13/19 13:45 BP 116/84 12/13/19 13:45 Pulse Ox 99 12/13/19 13:45 Weight - Most Recent: 79.107 kg I&O - Last 24 hours: Intake & Output 12/12/19 12/13/19 12/13/19 22:59 06:59 14:59 Intake Total 400 180 Output Total 1150 Balance -750 180 Lab Results - Last 24 hrs: Laboratory Results - last 24 hr 1112/13/19 12/13/19 Range/Units 14:55 06:00 06:00 WBC 2.09 L* (3.98-10.04) K/mm3 RBC 3.81 L (3.98-5.22) M/mm3 Hgb 11.8 (11.2-15.7) gm/dl Hct 36.0 (34.1-44.9) % MCV 94.5 (79.4-94.8) fl MCH 31.0 (25.6-32.2) pg MCHC 32.8 (32.2-35.5) g/dl RDW Std Deviation 45.3 (36.4-46.3) fL Plt Count 209 (182-369) K/mm3 MPV 8.7 L (9.4-12.3) fl Neut % (Auto) 54.9 (34.0-71.1) % Lymph % (Auto) 22.5 (19.3-51.7) % [place] % (Auto) 18.7 H (4.7-12.5) % Eos % (Auto) 2.9 (0.7-5.8) Baso % (Auto) 0.5 (0.1-1.2) % Neut # (Auto) 1.15 L (1.56-6.13) K/mm3 Lymph # (Auto) 0.47 L (1.18-3.74) K/mm3 [place] # (Auto) 0.39 H (0.24-0.36) K/mm3 Eos # (Auto) 0.06 (0.04-0.36) K/mm3 Baso # (Auto) 0.01 (0.01-0.08) K/mm3 Manual Slide Review Abnormal smear Sodium 137 (136-145) mEq/L Potassium 4.1 (3.5-5.1) mEq/L Chloride 103 (98-107) mEq/L Carbon Dioxide 25 (21-32) mEq/L Anion Gap 13.1 (5-15) BUN 9 (7-18) mg/dL Creatinine 0.8 (0.55-1.02) mg/dL Est Cr Clr Drug Dosing 45.10 mL/min Estimated GFR (MDRD) > 60 (>60) mL/min BUN/Creatinine Ratio 11.3 L (14-18) Glucose 100 (83-115) mg/dL Calcium 8.8 (8.5-10.1) mg/dL Magnesium 1.9 (1.8-2.4) mg/dl Troponin I 0.083 H* 0.131 H* (0.00-0.056) ng/mL C-Reactive Protein (<1.0) mg/dL 12/12/ Range/Units 10:05 WBC (3.98-10.04) K/mm3 RBC (3.98-5.22) M/mm3 Hgb (11.2-15.7) gm/dl Hct (34.1-44.9) % MCV (79.4-94.8) fl MCH (25.6-32.2) pg MCHC (32.2-35.5) g/dl RDW Std Deviation (36.4-46.3) fL Plt Count (182-369) K/mm3 MPV (9.4-12.3) fl Neut % (Auto) (34.0-71.1) % Lymph % (Auto) (19.3-51.7) % [place] % (Auto) (4.7-12.5) % Eos % (Auto) (0.7-5.8) Baso % (Auto) (0.1-1.2) % Neut # (Auto) (1.56-6.13) K/mm3 Lymph # (Auto) (1.18-3.74) K/mm3 [place] # (Auto) (0.24-0.36) K/mm3 Eos # (Auto) (0.04-0.36) K/mm3 Baso # (Auto) (0.01-0.08) K/mm3 Manual Slide Review Sodium (136-145) mEq/L Potassium (3.5-5.1) mEq/L Chloride (98-107) mEq/L Carbon Dioxide (21-32) mEq/L Anion Gap (5-15) BUN (7-18) mg/dL Creatinine (0.55-1.02) mg/dL Est Cr Clr Drug Dosing mL/min Estimated GFR (MDRD) (>60) mL/min BUN/Creatinine Ratio (14-18) Glucose (83-115) mg/dL Calcium (8.5-10.1) mg/dL Magnesium (1.8-2.4) mg/dl Troponin I 0.146 H* (0.00-0.056) ng/mL C-Reactive Protein 2.1 H* (<1.0) mg/dL Med Orders - Current: Current Medications Acetaminophen (Tylenol) 650 mg PO Q6H PRN PRN Reason: Pain/Fever Last Admin: 12/13/19 08:32 Dose: 650 mg Documented by: Aspirin (Ecotrin) 325 mg PO DAILY [facility] Last Admin: 12/13/19 08:33 Dose: 325 mg Documented by: Enoxaparin Sodium (Lovenox) 40 mg SUBCUT DAILY [facility] Last Admin: 12/13/19 08:32 Dose: 40 mg Documented by: Isosorbide Mononitrate (Imdur) 30 mg PO DAILY [facility] Last Admin: 12/13/19 08:34 Dose: 30 mg Documented by: Latanoprost (Xalatan 0.005% Ophth Soln) 0 ml EYEBOTH BEDTIME [facility] Last Admin: 12/12/19 21:30 Dose: Not Given Documented by: Magnesium Oxide (Magnesium Oxide) 400 mg PO DAILY [facility] Last Admin: 12/13/19 08:33 Dose: 400 mg Documented by: Metoprolol Succinate (Toprol Xl) 50 mg PO DAILY [facility] Last Admin: 12/13/19 08:34 Dose: 50 mg Documented by: Nitroglycerin (Nitrostat) 0.4 mg SL Q5M PRN PRN Reason: Chest Pain Pantoprazole Sodium (Protonix) 40 mg PO BID [facility] Last Admin: 12/13/19 08:34 Dose: 40 mg Documented by: Sodium Chloride (Saline Flush) 10 ml FLUSH ASDIRECTED PRN PRN Reason: Keep Vein Open Last Admin: 12/12/19 11:54 Dose: 10 ml Documented by: Spironolactone (Aldactone) 25 mg PO DAILY [facility] Last Admin: 12/13/19 08:33 Dose: 25 mg Documented by: Zolpidem Tartrate (Ambien) 5 mg PO BEDTIME PRN PRN Reason: Insomnia Discontinued Medications Aspirin (Aspirin) 324 mg PO ONETIME ONE Stop: 12/12/19 16:48 Last Admin: 12/12/19 17:24 Dose: 324 mg Documented by: Sodium Chloride (Normal Saline) 1,000 mls @ 150 mls/hr IV NOW STA Stop: 12/12/19 22:20 Last Admin: 12/12/19 16:19 Dose: 150 mls/hr Documented by: - Exam Quality Assessment: Reports: DVT Prophylaxis General: Reports: Alert, Oriented, Cooperative HEENT: Reports: Pupils Equal, Pupils Reactive, EOMI Neck: Reports: Trachea Midline, No JVD Lungs: Reports: Clear to Auscultation, Normal Respiratory Effort Cardiovascular: Reports: Regular Rate, Regular Rhythm GI/Abdominal Exam: Normal Bowel Sounds, Soft, Non-Tender (Female) Exam: Deferred Rectal (Female) Exam: Deferred Back Exam: Reports: Normal Inspection Extremities: Normal Inspection, No Pedal Edema, Normal Capillary Refill Skin: Reports: Warm, Dry, Intact Neurological: Reports: No New Focal Deficit Psy/Mental Status: Reports: Alert, Normal Affect, Normal Mood
== END 2019-12-13 16:49 | disposition home or self-care (01) | DRG 177 ==
LOC: SUPCPDRO 11:03 → JD.ED 11:03 → JD.MS 17:35
PROVIDERS: ADMIT Internal Medicine Cardiovascular Disease; ATTEND Internal Medicine Cardiovascular Disease
DX: U07.1 COVID-19 (principal); R79.89 Other specified abnormal findings of blood chemistry; I10 Essential (primary) hypertension; I25.10 Atherosclerotic heart disease of native coronary artery without angina pectoris; I25.2 Old myocardial infarction; E78.00 Pure hypercholesterolemia, unspecified; I71.4 Abdominal aortic aneurysm, without rupture; K44.9 Diaphragmatic hernia without obstruction or gangrene; I21.A1 Myocardial infarction type 2; K21.9 Gastro-esophageal reflux disease without esophagitis; I25.119 Atherosclerotic heart disease of native coronary artery with unspecified angina pectoris; M19.90 Unspecified osteoarthritis, unspecified site; M54.9 Dorsalgia, unspecified; G89.29 Other chronic pain; M51.36 Other intervertebral disc degeneration, lumbar region; Z88.1 Allergy status to other antibiotic agents; Z88.2 Allergy status to sulfonamides; Z88.8 Allergy status to other drugs, medicaments and biological substances; Z79.82 Long term (current) use of aspirin; Z79.899 Other long term (current) drug therapy; Z86.73 Personal history of transient ischemic attack (TIA), and cerebral infarction without residual deficits
CPT/HCPCS: 36415; 70450; 71045; 71275; 80053; 81001; 84484 ×2; 85025; 85379; 86140; 93005 ×2; A9270; J7030; U0002; 80048; 83735; 84145; 94667; 94668; J1650

== ENCOUNTER 2019-12-15 13:12 | Emergency (ER) | payer MEDICARE, OTHER ==
[2019-12-15 13:34] VITALS: BP 164/101; PULSE 78
--- NOTE | 2019-12-15 14:14 | EDM.PDOC ---
ED HPI GENERAL MEDICAL PROBLEM - General Chief Complaint: Respiratory Problem Stated Complaint: COVID +/SOB Time Seen by Provider: 12/15/19 13:50 Source of Information: Reports: Patient, RN Notes Reviewed History Limitations: Reports: No Limitations - History of Present Illness INITIAL COMMENTS - FREE TEXT/NARRATIVE: The patient is a 79-year-old female who presents to the ED for ongoing COVID-19 symptoms. The patient was diagnosed on 12/12/2019 through this ER, and she stayed overnight due to her confusion and elevated troponin levels. She was sent home the following day. She was not sent home with a pulse oximeter, or recommendations for 1. She states today however she is feeling a little bit more short of breath, and is still complaining about some slight confusion about making general decisions such as how do I do this, or what do I do first. She did talk with the [facility], and they advised her to come to the ER for evaluation as she did not have a pulse ox at home. Her O2 sats at time of arrival were 98% on room air after walking through the hallway. She is afebrile at 98.5 F, she is not dyspneic, her respiratory rate is 16 breaths/min, and her pulse is 78 bpm. She notes that she started feeling generally unwell around Halloween time, and she states that she has had diffuse fatigue, body aches, cough. She does have a daughter at home, that has been helping her with her disease process. - Related Data Allergies Allergy/AdvReac Type Severity Reaction Status Date / Time ezetimibe [From Zetia] Allergy Severe Leg Cramps Verified 12/15/19 13:40 gentamicin [Gentamicin] Allergy Severe Rash Verified 12/15/19 13:40 gluten Allergy Severe Stomach Verified 12/15/19 13:40 Upset rosuvastatin [From Crestor] Allergy Severe Muscle Verified 12/15/19 13:40 Aches Sulfa (Sulfonamide Allergy Severe Cannot Verified 12/15/19 13:40 Antibiotics) Remember Home Meds: Home Meds Lisinopril 40 mg PO DAILY 03/29/14 [History] Metoprolol Succinate [Toprol XL 50mg] 50 mg PO DAILY 03/29/14 [History] Pantoprazole Sodium 40 mg PO BID 03/29/14 [History] Nitroglycerin [Nitrostat] 0.4 mg SL Q5M PRN #100 tab.sl 03/30/14 [Rx] Aspirin [Halfprin] 81 mg PO DAILY 03/23/19 [History] Magnesium 250 mg PO BID 03/23/19 [History] Isosorbide Mononitrate [Imdur] 30 mg PO DAILY 12/12/19 [History] Latanoprost/Pf [Latanoprost 0.005% Eye Drop] 1 drop EYEBOTH BEDTIME 12/12/19 [History] Spironolactone [Aldactone] 25 mg PO DAILY 12/12/19 [History] Acetaminophen [Tylenol] 650 mg PO Q6H PRN tablet 12/13/19 [Rx] Past Medical History HEENT History: Reports: Cataract Cardiovascular History: Reports: CAD, High Cholesterol, Hypertension, MT, Other (See Below) Other Cardiovascular History: AAA Gastrointestinal History: Reports: GI Bleed, Hemorrhoids, Hiatal Hernia, Other (See Below) Other Gastrointestinal History: Asencio's esophagus, gastric polyp, benign fundic gland polyps of stomach 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 CONE TREATER History: Uterine endometrial endocarcinoma Musculoskeletal History: Reports: Back Pain, Chronic, Other (See Below) Other Musculoskeletal History: Right lower extremity radicular pain, left plantar fasciitis Neurological History: Reports: CVA, Other (See Below) Other Neuro History: Spinal osteoarthritis with radiculopathy, lumbar DDD, tremors Oncologic (Cancer) History: Reports: Other (See Below) Other Oncologic History: uterine endometrial carcinoma - Infectious Disease History Infectious Disease History: Reports: Chicken Pox, Measles, Mumps, Novel Coronavirus (12/12/2019) - Past Surgical History HEENT Surgical History: Reports: Cataract Surgery Cardiovascular Surgical History: Reports: Other (See Below) Other Cardiovascular Surgeries/Procedures: Heart Cath GI Surgical History: Reports: Cholecystectomy, Colonoscopy, EGD Social & Family History - Family History Family Medical History: Unobtainable - Tobacco Use Tobacco Use Status *Q: Never Tobacco User - Caffeine Use Caffeine Use: Reports: Coffee - Recreational Drug Use Recreational Drug Use: No ED ROS GENERAL - Review of Systems Review Of Systems: Comprehensive ROS is negative, except as noted in HPI. ED EXAM, GENERAL - Physical Exam Exam: See Below Exam Limited By: No Limitations General Appearance: Alert, WD/WN, No Apparent Distress Respiratory/Chest: No Respiratory Distress, Lungs Clear, Normal Breath Sounds, No Accessory Muscle Use, Chest Non-Tender Cardiovascular: Normal Peripheral Pulses, Regular Rate, Rhythm, No Murmur GI/Abdominal: Normal Bowel Sounds, Soft, Non-Tender, No Distention, No Mass Extremities: Normal Inspection, Normal Capillary Refill Neurological: Alert, Oriented, Normal Cognition, No Motor/Sensory Deficits Psychiatric: Normal Affect, Normal Mood Skin Exam: Warm, Dry, Intact, Normal Color, No Rash Course - Vital Signs Last Recorded V/S: Last Vital Signs Temp 98.5 F 12/15/19 13:29 Pulse 78 12/15/19 13:29 Resp 16 12/15/19 13:29 BP 164/101 H 12/15/19 13:29 Pulse Ox 98 12/15/19 13:29 - Orders/Labs/Meds Orders: Active Orders 24 hr Category Date Time Status Chest 1V Frontal [CR] Stat Exams 12/15/19 14:19 Ordered - Re-Assessments/Exams Free Text/Narrative Re-Assessment/Exam: 12/15/19 14:18 Patient presents to the ED for the evaluation of her ongoing COVID-19 symptoms. She had an overnight observation stay in this hospital on 11 December, and was discharged home with general recommendations. She has had stable vitals throughout her stay, and has not had any increasing shortness of breath here at this time. We will repeat a 1 view chest x-ray just for disease progression purposes. She does not necessarily want a lot of labs retaken at this time. With her vitals looking as good as they are, I am okay with this at this time. 12/15/19 14:59 Chest x-ray shows no obvious signs of consolidation or pneumonia at this time. Is fairly unchanged from her chest x-ray done on 12/12/2019. Official radiology read is pending. This was reviewed by myself and Dr. Soler. Departure - Departure Time of Disposition: 14:20 Disposition: Home, Self-Care 01 Condition: Good Clinical Impression: COVID-19 - Discharge Information *PRESCRIPTION DRUG MONITORING PROGRAM REVIEWED*: No *COPY OF PRESCRIPTION DRUG MONITORING REPORT IN PATIENT ISHA: No Instructions: COVID-19: How to Protect Yourself and Others - [facility] Referrals: Marielena Redmond MD [Primary Care Provider] - Forms: ED Department Discharge Additional Instructions: You were seen in the ER today for ongoing and/or worsening respiratory symptoms. Your chest x-ray showed no signs of pneumonia at this time. Your oxygen levels were great at 97-98% on room air. Please try to increase your oral fluid intake, and eat multiple small meals throughout the day, to keep yourself healthy. You need to keep yourself nourished in order to fight off this disease. You can try a liquid diet like gatorade/powerade as well to get your electrolytes. You may take 500 mg Tylenol every hours 6 hours for pain/fever relief. Do not exceed 4000 mg Tylenol in a 24-hour time span. However, running a fever is your body's natural response to illness, and it allows the body to develop antibodies to disease, we are recommending trying to limit the use of Tylenol as much as possible to allow your body's natural immune response. Recommend you obtain a pulse oximeter and monitor your oxygen levels at home, you should place the monitor on your finger, and sit in a calm, quiet position for a few minutes and then record the number that is on the screen. If this consistently below 90% on room air without movement, this would be cause for concern to come back to the hospital for further management of your COVID-19 disease. The [facility] would be able to monitor your oxygen levels remotely; if you use their [place] [facility], and enter your temperature and pulse ox readings daily, and then a nurse will follow up with you for any concerning issues. Sepsis Event Note (ED) - Evaluation Sepsis Screening Result: No Definite Risk - Focused Exam Vital Signs: Vital Signs Temp Pulse Resp BP Pulse Ox 12/15/19 13:29 98.5 F 78 16 164/101 H 98 - My Orders Last 24 Hours: My Active Orders 12/15/19 14:19 Chest 1V Frontal [CR] Stat - Assessment/Plan Last 24 Hours: My Active Orders 12/15/19 14:19 Chest 1V Frontal [CR] Stat
--- NOTE | 2019-12-17 10:17 | CR ---
PROCEDURE INFORMATION: Exam: XR Chest, 1 View Exam date and time: 12/15/2019 2:16 PM Age: 79 years old Clinical indication: Other: Covid + TECHNIQUE: Imaging protocol: XR of the chest Views: 1 view. COMPARISON: OT Chest 1V Frontal 12/12/2019 1:27 PM FINDINGS: Lungs: Unremarkable. No consolidation. Pleural space: Unremarkable. No pleural effusion. No pneumothorax. Heart/Mediastinum: Unremarkable. No cardiomegaly. Vasculature: Atherosclerosis. Bones/joints: Unremarkable. IMPRESSION: No infiltrates. Thank you for allowing us to participate in the care of your patient. Dictated and Authenticated by: Tu Luong MD 12/15/2019 4:00 PM Central Time ([place] & [place]) JOHN
== END 2019-12-15 16:25 | disposition home or self-care (01) ==
LOC: JD.ED 13:12
DX: U07.1 COVID-19 (principal); I10 Essential (primary) hypertension; I25.2 Old myocardial infarction; I25.10 Atherosclerotic heart disease of native coronary artery without angina pectoris; Z88.2 Allergy status to sulfonamides; Z88.1 Allergy status to other antibiotic agents; Z91.09 Other allergy status, other than to drugs and biological substances; Z88.8 Allergy status to other drugs, medicaments and biological substances; Z90.49 Acquired absence of other specified parts of digestive tract; Z79.82 Long term (current) use of aspirin; Z79.899 Other long term (current) drug therapy
CPT/HCPCS: 71045; 71045-26; 99282; 99284-25

== ENCOUNTER 2020-05-15 20:08 | Emergency (ER) | payer MEDICARE, OTHER ==
[2020-05-15 20:20] VITALS: PULSE 64
--- NOTE | 2020-05-15 21:58 | EDM.PDOC ---
ED HPI GENERAL MEDICAL PROBLEM - General Chief Complaint: Lower Extremity Injury/Pain Stated Complaint: LEFT LEG PAINFUL Time Seen by Provider: 05/15/20 20:18 Source of Information: Reports: Patient, RN Notes Reviewed History Limitations: Reports: No Limitations - History of Present Illness INITIAL COMMENTS - FREE TEXT/NARRATIVE: Patient is a 79-year-old female presenting to the emergency department with complaints of intermittent left lower extremity pain that started yesterday. She states the pain is worse when she first gets up in the morning and improves throughout the day. She does have a history of varicose veins but has never had blood clots. She has no tenderness behind her knee but does have some mild tenderness in her upper leg as well. Denies any recent injuries but has been outside working over the last couple days. She has no chest pain or shortness of breath. left leg Pain Score (Numeric/FACES): 7 - Related Data Allergies Allergy/AdvReac Type Severity Reaction Status Date / Time ezetimibe [From Zetia] Allergy Severe Leg Cramps Verified 05/15/20 20:20 gentamicin [Gentamicin] Allergy Severe Rash Verified 05/15/20 20:20 gluten Allergy Severe Stomach Verified 05/15/20 20:20 Upset rosuvastatin [From Crestor] Allergy Severe Muscle Verified 05/15/20 20:20 Aches Sulfa (Sulfonamide Allergy Severe Cannot Verified 05/15/20 20:20 Antibiotics) Remember Home Meds: Home Meds Lisinopril 40 mg PO DAILY 03/29/14 [History] Metoprolol Succinate [Toprol XL 50mg] 50 mg PO DAILY 03/29/14 [History] Pantoprazole Sodium 40 mg PO BID 03/29/14 [History] Nitroglycerin [Nitrostat] 0.4 mg SL Q5M PRN #100 tab.sl 03/30/14 [Rx] Aspirin [Halfprin] 81 mg PO DAILY 03/23/19 [History] Magnesium 250 mg PO BID 03/23/19 [History] Isosorbide Mononitrate [Imdur] 30 mg PO DAILY 12/12/19 [History] Latanoprost/Pf [Latanoprost 0.005% Eye Drop] 1 drop EYEBOTH BEDTIME 12/12/19 [History] Spironolactone [Aldactone] 25 mg PO DAILY 12/12/19 [History] Acetaminophen [Tylenol] 650 mg PO Q6H PRN tablet 12/13/19 [Rx] Past Medical History HEENT History: Reports: Cataract Cardiovascular History: Reports: CAD, High Cholesterol, Hypertension, [place], Other (See Below) Other Cardiovascular History: AAA Respiratory History: Reports: None Gastrointestinal History: Reports: GI Bleed, Hemorrhoids, Hiatal Hernia, Other (See Below) Other Gastrointestinal History: Asencio's esophagus, gastric polyp, benign fundic gland polyps of stomach Genitourinary History: Reports: None 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: Uterine endometrial endocarcinoma Musculoskeletal History: Reports: Back Pain, Chronic, Other (See Below) Other Musculoskeletal History: Right lower extremity radicular pain, left plantar fasciitis Neurological History: Reports: CVA, Other (See Below) Other Neuro History: Spinal osteoarthritis with radiculopathy, lumbar DDD, tremors Psychiatric History: Reports: None Endocrine/Metabolic History: Reports: None Hematologic History: Reports: None Immunologic History: Reports: None Oncologic (Cancer) History: Reports: Other (See Below) Other Oncologic History: uterine endometrial carcinoma Dermatologic History: Reports: None - Infectious Disease History Infectious Disease History: Reports: Chicken Pox, Measles, Mumps, Novel Coronavirus - Past Surgical History Head Surgeries/Procedures: Reports: None HEENT Surgical History: Reports: Cataract Surgery Cardiovascular Surgical History: Reports: Other (See Below) Other Cardiovascular Surgeries/Procedures: Heart Cath Respiratory Surgical History: Reports: None GI Surgical History: Reports: Cholecystectomy, Colonoscopy, EGD Female Surgical History: Reports: None Endocrine Surgical History: Reports: None Neurological Surgical History: Reports: None Musculoskeletal Surgical History: Reports: None Oncologic Surgical History: Reports: None Dermatological Surgical History: Reports: None Social & Family History - Family History Family Medical History: Unobtainable - Tobacco Use Tobacco Use Status *Q: Former Tobacco User Used Tobacco, but Quit: Yes Month/Year Tobacco Last Used: 08/1990 - Caffeine Use Caffeine Use: Reports: Coffee - Recreational Drug Use Recreational Drug Use: No Review of Systems - Review of Systems Review Of Systems: See Below Constitutional: Reports: No Symptoms Eyes: Reports: Foreign Body Sensation Ears: Reports: No Symptoms Nose: Reports: No Symptoms Mouth/Throat: Reports: No Symptoms Respiratory: Reports: No Symptoms. Denies: Shortness of Breath, Pleuritic Chest Pain, Cough Cardiovascular: Reports: No Symptoms. Denies: Edema GI/Abdominal: Reports: No Symptoms Genitourinary: Reports: No Symptoms Musculoskeletal: Reports: Other (Pain to left posterior calf) Skin: Reports: No Symptoms Neurological: Reports: No Symptoms Psychiatric: Reports: No Symptoms ED EXAM, GENERAL - Physical Exam Exam: See Below Exam Limited By: No Limitations General Appearance: Alert, WD/WN, No Apparent Distress Respiratory/Chest: No Respiratory Distress, Lungs Clear, Normal Breath Sounds, No Accessory Muscle Use, Chest Non-Tender Cardiovascular: Normal Peripheral Pulses, Regular Rate, Rhythm, No Edema, No Gallop, No JVD, No Murmur, No Rub Extremities: Normal Inspection, Normal Range of Motion, No Pedal Edema, Normal Capillary Refill, Other (Mild tenderness to palpation throughout the left calf. 2+ pedal pulses. No redness or warmth, or edema.) Neurological: Alert, Oriented, CN II-XII Intact, Normal Cognition, Normal Gait, Normal Reflexes, No Motor/Sensory Deficits Psychiatric: Normal Affect, Normal Mood Skin Exam: Warm, Dry, Intact, Normal Color, No Rash Course - Vital Signs Last Recorded V/S: Last Vital Signs Temp 97.1 F 05/15/20 20:15 Pulse 64 05/15/20 20:15 Resp 18 05/15/20 20:15 BP 178/93 H 05/15/20 20:15 Pulse Ox 96 05/15/20 20:15 - Orders/Labs/Meds Orders: Active Orders 24 hr Category Date Time Status VL Duplex Lwr Ext Veins Ltd Lt [US] Stat Exams 05/15/20 20:28 Taken - Re-Assessments/Exams Free Text/Narrative Re-Assessment/Exam: Patient is a 79 year old female presenting to the ER with complaints of a 2-day history of left calf pain. She is concerned that she could have a blood clot, h owever she has no history of blood clots. She is had no known injury but has been working outside more than normal. She is a history of varicose veins. On exam she has some mild tenderness to her posterior calf and there are some significant, fairly firm, varicose veins in this area. There is no redness, warmth, or edema. I have ordered a venous Doppler ultrasound of the left lower extremity. 05/15/20 21:57 Venous Doppler ultrasound of the left lower extremity is negative there is no signs of deep venous thrombosis. Superficial veins are also unremarkable. Results discussed with patient. Recommend Tylenol and ibuprofen as needed for discomfort. If symptoms do not improve, follow-up with primary care. She is in agreement with this plan. Discharge instructions as documented. Departure - Departure Time of Disposition: 22:00 Disposition: Home, Self-Care 01 Condition: Good Clinical Impression: Leg pain, left - Discharge Information *PRESCRIPTION DRUG MONITORING PROGRAM REVIEWED*: No *COPY OF PRESCRIPTION DRUG MONITORING REPORT IN PATIENT ISHA: No Referrals: Marielena Redmond MD [Primary Care Provider] - Forms: ED Department Discharge Additional Instructions: You were seen in the emergency department today for pain to your left lower leg over the last few days. Ultrasounds were completed and found to be normal. There is no blood clots within your deep veins or your superficial veins. As we discussed, this is likely musculoskeletal in nature. Recommend Tylenol or ibuprofen as needed for discomfort. Elevating the extremity and intermittent icing may also be beneficial. If your symptoms do not improve over the next few days, recommend follow-up in the clinic. If you should experience any new or worsening symptoms, please not hesitate to return to the emergency department. Sepsis Event Note (ED) - Evaluation Sepsis Screening Result: No Definite Risk - Focused Exam Vital Signs: Vital Signs Temp Pulse Resp BP Pulse Ox 05/15/20 20:15 97.1 F 64 18 178/93 H 96 - My Orders Last 24 Hours: My Active Orders 05/15/20 20:28 VL Duplex Lwr Ext Veins Ltd Lt [US] Stat - Assessment/Plan Last 24 Hours: My Active Orders 05/15/20 20:28 VL Duplex Lwr Ext Veins Ltd Lt [US] Stat
[2020-05-15 22:38] VITALS: BP 135/81
--- NOTE | 2020-05-16 08:40 | US ---
Left lower extremity deep venous ultrasound: Duplex and color Doppler evaluation was obtained of the left common femoral, proximal greater saphenous, superficial femoral, popliteal, posterior tibial and peroneal veins. Right common femoral vein was also evaluated. Comparison: No prior venous imaging is available. Findings: Normal phasic flow, augmentation and compression is seen. Impression: 1. No findings of deep venous thrombosis is seen within the left lower extremity or within the right common femoral vein. Diagnostic code #1 I agree with preliminary report from philip, finalized on 05/15/20, 10:34 PM CDT
== END 2020-05-15 22:10 | disposition home or self-care (01) ==
LOC: JD.ED 20:08
DX: M79.662 Pain in left lower leg (principal); I25.10 Atherosclerotic heart disease of native coronary artery without angina pectoris; I10 Essential (primary) hypertension; I25.2 Old myocardial infarction; Z86.73 Personal history of transient ischemic attack (TIA), and cerebral infarction without residual deficits; Z88.8 Allergy status to other drugs, medicaments and biological substances; Z88.1 Allergy status to other antibiotic agents; Z91.048 Other nonmedicinal substance allergy status; Z88.2 Allergy status to sulfonamides; Z79.82 Long term (current) use of aspirin; Z79.899 Other long term (current) drug therapy; Z87.891 Personal history of nicotine dependence
CPT/HCPCS: 93971-26-LT; 93971-LT; 99282; 99283-25

== ENCOUNTER 2020-12-02 20:01 | Emergency (ER) | payer MEDICARE, OTHER ==
[2020-12-02 20:05] VITALS: BP 203/107; PULSE 73
[2020-12-02] MEDS ORDERED: Ondansetron 4 MG/2 ML SDV IVPUSH ONE (20:25)
[2020-12-02] MEDS ORDERED: Sodium Chloride 0.9% 1,000 ML IV SCH (20:30)
--- NOTE | 2020-12-02 22:28 | EDM.PDOC ---
ED HPI GENERAL MEDICAL PROBLEM - General Chief Complaint: Gastrointestinal Problem Stated Complaint: [facility] Time Seen by Provider: 12/02/20 22:02 Source of Information: Reports: Patient History Limitations: Reports: No Limitations - History of Present Illness INITIAL COMMENTS - FREE TEXT/NARRATIVE: Mrs. Mckeon is a very pleasant 80-year-old woman who now presents to the ED stating that she developed nausea and vomiting around 21:30 last night, 12/01/2020. She has not had any other gastrointestinal, abdominal, or urinary symptoms. She did not take any [id number] or home remedies, but was given Zofran per EMS, and now states that she feels all better. She denies having prior similar symptoms. The patient denies recently eating any bad tasting or smelling food. No similarly ill close contacts. No recent antibiotics. No recent travel. Here in the ED, the patient's initial BP was found to be elevated at 203/107, although it shortly dropped to 147/82, without treatment. She is otherwise hemodynamically stable, afebrile, saturating 97 to 99% on room air. She appears to be comfortable, in no acute distress. Prior to last night, the patient denies having a recent fever, chills, sore throat, ear pain, nasal or sinus congestion, cough, dyspnea, chest pain, palpitations, nausea, vomiting, constipation, diarrhea, abdominal pain, urinary symptoms, recent weight gain or weight loss, recent bloody bowel movements or black bowel movements, recent joint aches, headaches, or rashes. The patient's PCP is Dr. Marielena Redmond. Her cardiology midlevel is NARINDER Garland. Her Blanket Folder is Dr. Kimmy Esquivel. She has not received a COVID vaccination, nor an influenza vaccination this season. - Related Data Allergies Allergy/AdvReac Type Severity Reaction Status Date / Time ezetimibe [From Zetia] Allergy Severe Leg Cramps Verified 12/02/20 20:20 gentamicin [Gentamicin] Allergy Severe Rash Verified 12/02/20 20:20 gluten Allergy Severe Stomach Verified 12/02/20 20:20 Upset rosuvastatin [From Crestor] Allergy Severe Muscle Verified 12/02/20 20:20 Aches Sulfa (Sulfonamide Allergy Severe Cannot Verified 12/02/20 20:20 Antibiotics) Remember Home Meds: Home Meds Lisinopril 40 mg PO DAILY 03/29/14 [History] Metoprolol Succinate [Toprol XL 50mg] 50 mg PO DAILY 03/29/14 [History] Pantoprazole Sodium 40 mg PO BID 03/29/14 [History] Isosorbide Mononitrate [Imdur] 30 mg PO DAILY 12/12/19 [History] Latanoprost/Pf [Latanoprost 0.005% Eye Drop] 1 drop EYEBOTH BEDTIME 12/12/19 [History] Spironolactone [Aldactone] 12.5 mg PO DAILY 12/12/19 [History] Ondansetron [Zofran ODT] 1 tab PO Q8H PRN #10 tab.dis 12/02/20 [Rx] Past Medical History Cardiovascular History: Reports: Aneurysm (AAA), CAD, High Cholesterol, Hypertension, [place] (x 1) Gastrointestinal History: Reports: GERD (with Asencio esophagus), GI Bleed, Hemorrhoids, Hiatal Hernia, Other (See Below) (Gastric polyps) Musculoskeletal History: Reports: Back Pain, Chronic (DDD), Osteoarthritis (spine) Neurological History: Reports: CVA (lacunar infarcts on MRI) Endocrine/Metabolic History: Reports: Obesity/BMI 30+ Oncologic (Cancer) History: Reports: Uterine (s/p hysterectomy) - Infectious Disease History Infectious Disease History: Reports: Chicken Pox, Measles, Mumps, Novel Coronavirus (dx'd 12/12/2019) - Past Surgical History HEENT Surgical History: Reports: Cataract Surgery (bilateral), Oral Surgery (dental extractions) Cardiovascular Surgical History: Reports: Varicose (LLE vein stripping), Other (See Below) (Coronary angiogram x 1) GI Surgical History: Reports: Cholecystectomy (around 2000), Colonoscopy (x 2), EGD (x 2) Female Surgical History: Reports: D&C (x 1), Hysterectomy (complete) Social & Family History - Tobacco Use Tobacco Use Status *Q: Former Tobacco User Years of Tobacco use: 33 Packs/Tins Daily: 0.5 Month/Year Tobacco Last Used: Quit 1989 Tobacco Use Comment: Started smoking 1956 - Caffeine Use Caffeine Use: Reports: Coffee - Alcohol Use Alcohol Use History: Yes Alcohol Use Frequency: Rarely - Recreational Drug Use Recreational Drug Use: No - Living Situation & Occupation Living situation: Reports: , Alone Occupation: Retired ED ROS GENERAL - Review of Systems Review Of Systems: Comprehensive ROS is negative, except as noted in HPI. ED EXAM, GI/ABD - Physical Exam Exam: See Below Exam Limited By: No Limitations General Appearance: Alert, WD/WN, No Apparent Distress Eyes: Bilateral: Normal Appearance, EOMI Ears: Normal External Exam, Hearing Grossly Normal Nose: Normal Inspection Throat/Mouth: Normal Inspection, Normal Lips, Normal Voice, No Airway Compromise Head: Atraumatic, Normocephalic Neck: Normal Inspection, Full Range of Motion Respiratory/Chest: No Respiratory Distress, Lungs Clear, Normal Breath Sounds, No Accessory Muscle Use Cardiovascular: Normal Peripheral Pulses, Regular Rate, Rhythm, No Edema, No Gallop, No JVD, No Murmur, No Rub GI/Abdominal Exam: Normal Bowel Sounds, Soft, Non-Tender, No Organomegaly, No Distention, No Abnormal Bruit, No Mass Back Exam: Normal Inspection, Full Range of Motion, NT Extremities: Normal Inspection, Normal Range of Motion, Normal Capillary Refill Neurological: Alert, Oriented, Normal Cognition, No Motor/Sensory Deficits Psychiatric: Normal Affect Skin Exam: Warm, Dry, Intact, Normal Color, No Rash Course - Vital Signs Last Recorded V/S: Last Vital Signs Temp 36.2 C 12/02/20 20:03 Pulse 73 12/02/20 20:03 Resp 17 12/02/20 20:03 BP 203/107 H 12/02/20 20:03 Pulse Ox 97 12/02/20 20:03 - Orders/Labs/Meds Labs: Laboratory Tests 12/02/20 12/02/20 Range/Units 20:45 20:45 WBC 5.53 (3.98-10.04) K/mm3 RBC 4.47 (3.98-5.22) M/mm3 Hgb 13.8 D (11.2-15.7) gm/dl Hct 41.0 (34.1-44.9) % MCV 91.7 (79.4-94.8) fl MCH 30.9 (25.6-32.2) pg MCHC 33.7 (32.2-35.5) g/dl RDW Std Deviation 47.6 H (36.4-46.3) fL Plt Count 240 (182-369) K/mm3 MPV 8.9 L (9.4-12.3) fl Neutrophils % (Manual) 85 H (40-60) % Band Neutrophils % 0 (0-10) % Lymphocytes % (Manual) 7 L (20-40) % Atypical Lymphs % 0 % Monocytes % (Manual) 8 (2-10) % Eosinophils % (Manual) 0 L (0.7-5.8) % Basophils % (Manual) 0 L (0.1-1.2) Platelet Estimate Adequate Anisocytosis 1+ slight RBC Morph Comment Abnormal Sodium 133 L (136-145) mEq/L Potassium 4.2 (3.5-5.1) mEq/L Chloride 98 (98-107) mEq/L Carbon Dioxide 25 (21-32) mEq/L Anion Gap 14.2 (5-15) BUN 18 (7-18) mg/dL Creatinine 1.0 (0.55-1.02) mg/dL Est Cr Clr Drug Dosing 35.49 mL/min Estimated GFR (MDRD) 53 (>60) mL/min BUN/Creatinine Ratio 18.0 (14-18) Glucose 124 H (70-99) mg/dL Calcium 9.6 (8.5-10.1) mg/dL Total Bilirubin 0.7 (0.2-1.0) mg/dL AST 24 (15-37) U/L ALT 30 (14-59) U/L Alkaline Phosphatase 70 (46-116) U/L Total Protein 8.4 H (6.4-8.2) g/dl Albumin 4.0 (3.4-5.0) g/dl Globulin 4.4 gm/dL Albumin/Globulin Ratio 0.9 L (1-2) Meds: Medications Discontinued Medications Generic Name Dose Route Start Last Admin Trade Name Freq PRN Reason Stop Dose Admin Sodium Chloride 1,000 mls @ 125 mls/hr 12/02/20 20:30 12/02/20 20:54 Normal Saline IV 125 mls/hr ASDIRECTED MARYANN Administration Ondansetron HCl 4 mg 12/02/20 20:25 12/02/20 20:54 Ondansetron 4 Mg/2 Ml Sdv IVPUSH 12/02/20 20:26 4 mg ONETIME ONE Administration - Re-Assessments/Exams Free Text/Narrative Re-Assessment/Exam: 12/02/20 22:23 A CBC and CMP were ordered at triage. The patient's CBC is unremarkable. Her CMP is remarkable for slight hyponatremia of 133, and slight hyperglycemia of 124, with the remainder of her CMP being unremarkable. IV fluid and IV Zofran were ordered at triage. The patient now states that her nausea has completely resolved, and she feels completely back to normal. 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 I will recommend that she take a bland diet for the next couple of days, until she is feeling completely back to normal. Departure - Departure Time of Disposition: 22:24 Disposition: Home, Self-Care 01 Condition: Good Clinical Impression: Nausea & vomiting - Discharge Information *PRESCRIPTION DRUG MONITORING PROGRAM REVIEWED*: Not Applicable *COPY OF PRESCRIPTION DRUG MONITORING REPORT IN PATIENT ISHA: Not Applicable Prescriptions: Ondansetron [Zofran ODT] 1 tab PO Q8H PRN #10 tab.dis PRN Reason: Nausea/Vomiting Instructions: Nausea and Vomiting, Adult, [id number] Referrals: Marielena Redmond MD [Physician] - Kimmy Apodaca MD [Physician] - Ann Woodward PA-C [Ordering Only Provider] - Forms: ED Department Discharge Additional Instructions: You were seen in the emergency room after developing nausea and vomiting last night. Work-up in the ER included some blood tests, which were unremarkable. You have not suffered any significant electrolyte abnormalities. You were treated with some IV fluid and the antinausea medicine Zofran in the ER, with resolution of your nausea. A prescription for the antinausea medicine Zofran ODT has been sent to the [facility]. You may dissolve 1 tablet of Zofran ODT on your tongue up to every 8 hours, as needed for nausea/vomiting. We recommend that you stay adequately hydrated and eat a bland diet for the next couple of days, until you are feeling back to normal. You can noodle soup with saltine crackers is an excellent choice. If any other problems, please do not hesitate to return to the ER. Sepsis Event Note (ED) - Evaluation Sepsis Screening Result: No Definite Risk
== END 2020-12-02 22:35 | disposition home or self-care (01) ==
LOC: JD.ED 20:01
DX: R11.2 Nausea with vomiting, unspecified (principal); I25.10 Atherosclerotic heart disease of native coronary artery without angina pectoris; E78.00 Pure hypercholesterolemia, unspecified; I10 Essential (primary) hypertension; I25.2 Old myocardial infarction; E66.9 Obesity, unspecified; Z68.32 Body mass index [BMI] 32.0-32.9, adult; Z88.2 Allergy status to sulfonamides; Z91.018 Allergy to other foods; Z88.8 Allergy status to other drugs, medicaments and biological substances; Z86.73 Personal history of transient ischemic attack (TIA), and cerebral infarction without residual deficits; Z87.891 Personal history of nicotine dependence
CPT/HCPCS: 36415; 80053; 85007; 85027; 96374; 99284-25; J2405; J7030

== ENCOUNTER 2021-07-16 15:57 | Emergency (ER) | payer MEDICARE, OTHER ==
[2021-07-16 17:06] VITALS: BP 150/83; PULSE 57
[2021-07-16] MEDS ORDERED: Ondansetron 4 MG Tab.DIS PO ONE (17:55)
== END 2021-07-16 20:49 | disposition home or self-care (01) ==
LOC: JD.ED 15:57
DX: R55 Syncope and collapse (principal); R11.0 Nausea; I25.10 Atherosclerotic heart disease of native coronary artery without angina pectoris; I10 Essential (primary) hypertension; I25.2 Old myocardial infarction; K21.9 Gastro-esophageal reflux disease without esophagitis; E66.9 Obesity, unspecified; Z68.32 Body mass index [BMI] 32.0-32.9, adult; Z86.73 Personal history of transient ischemic attack (TIA), and cerebral infarction without residual deficits; Z86.16 Personal history of COVID-19; Z90.49 Acquired absence of other specified parts of digestive tract; Z90.710 Acquired absence of both cervix and uterus; Z79.899 Other long term (current) drug therapy; Z91.018 Allergy to other foods; Z88.8 Allergy status to other drugs, medicaments and biological substances; Z88.1 Allergy status to other antibiotic agents; Z88.2 Allergy status to sulfonamides; Z20.822 Contact with and (suspected) exposure to COVID-19
CPT/HCPCS: 36415; 70450; 80053; 83735; 84484; 85025; 93005; 93225; 93226; 99285; A9270; U0002; 93010; 99284

== ENCOUNTER 2022-08-30 08:54 | Day surgery (SDC) | payer MEDICARE, BC ==
[~2022-08-30 08:54] MED LIST changes: -Lidocaine 1%/Sod Bicarbonate in NS 8.4% 1 ML Syringe IDERM PRN; +Sodium Chloride 0.9% 10 ML Syringe FLUSH SCH
[2022-08-30] MEDS ORDERED: Propofol 200 MG/20 ML SDV ONE ×2 (10:19→10:48)
[2022-08-30] MEDS ORDERED: Lidocaine 1% 4 ML ONE (10:19)
[2022-08-30 13:36] VITALS: BP 140/80; PULSE 59
== END 2022-08-30 11:58 | disposition home or self-care (01) ==
LOC: JD.SDS 08:54
PROVIDERS: ATTEND Surgery
DX: K22.70 Barrett's esophagus without dysplasia (principal); K31.7 Polyp of stomach and duodenum; K21.00 Gastro-esophageal reflux disease with esophagitis, without bleeding; K22.89 Other specified disease of esophagus; I10 Essential (primary) hypertension; I25.10 Atherosclerotic heart disease of native coronary artery without angina pectoris; E78.00 Pure hypercholesterolemia, unspecified; I25.2 Old myocardial infarction; M19.90 Unspecified osteoarthritis, unspecified site; E66.9 Obesity, unspecified; Z90.710 Acquired absence of both cervix and uterus; Z79.82 Long term (current) use of aspirin; Z79.899 Other long term (current) drug therapy; Z88.2 Allergy status to sulfonamides; Z88.1 Allergy status to other antibiotic agents; Z88.8 Allergy status to other drugs, medicaments and biological substances; Z87.891 Personal history of nicotine dependence; Z90.49 Acquired absence of other specified parts of digestive tract
CPT/HCPCS: 43239; J2704; J7120; 00731; 99100; J3490

== ENCOUNTER 2023-01-25 00:42 | Emergency (ER) | payer MEDICARE, BC ==
[2023-01-25] MEDS ORDERED: hydrALAZINE 20 MG/ML SDV IVPUSH ONE (01:11)
[2023-01-25 01:46] LABS: BASOPHILS PERCENT AUTO 0.4 % (0.0-1.0); EOSINOPHILS ABSOLUTE AUTO 0.2 K/mm3 (0.0-0.4); EOSINOPHILS PERCENT AUTO 2.7 % (0.0-6.0); HEMATOCRIT 37.7 % (37.0-47.0); HEMOGLOBIN 12.8 gm/dl (12.0-16.0); IMMATURE GRAN ABSOLUTE AUTO 0.03 K/mm3 (0.00-0.05); IMMATURE GRAN PERCENT AUTO 0.4 % (0.0-0.4); LYMPHOCYTES ABSOLUTE AUTO 0.7 K/mm3 (1.0-4.8); LYMPHOCYTES PERCENT AUTO 10.8 % (24.0-44.0); MEAN CORPUSCULAR HEMOGLOBIN 31.3 pg (28.0-32.0); MEAN CORPUSCULAR VOLUME 92.2 fl (83.0-99.0); MONOCYTES ABSOLUTE AUTO 0.7 K/mm3 (0.0-0.8); MONOCYTES PERCENT AUTO 9.6 % (0.0-8.0); NEUTROPHILS ABSOLUTE AUTO 5.2 K/mm3 (1.8-7.7); NEUTROPHILS PERCENT AUTO 76.1 % (41.0-71.0); PLATELET COUNT,PLT 203 K/mm3 (150-400); RED BLOOD CELL COUNT 4.09 M/mm3 (4.10-5.30); WHITE BLOOD CELL COUNT,WBC 6.78 K/mm3 (3.9-11.3)
[2023-01-25] MEDS ORDERED: Aspirin 81 MG Tab.Chew PO ONE (02:09)
[2023-01-25 02:10] LABS: A/G RATIO 0.8 (1-2); ALBUMIN 3.4 g/dl (3.4-5.0); ANION GAP 14.3 (5-15); BILIRUBIN TOTAL 0.3 mg/dL (0.2-1.0); BUN/CREATININE RATIO 18.2 (14-18); CALCIUM 9.3 mg/dL (8.5-10.1); CREATININE 1.1 mg/dL (0.55-1.02); EST CRCL DRUG DOSING (CG) 31.19 mL/min; MAGNESIUM 1.8 mg/dL (1.8-2.4); POTASSIUM,K 4.3 mEq/L (3.5-5.1); PROTEIN TOTAL,TP 7.7 g/dl (6.4-8.2); TSH 0.957 uIU/mL (0.358-3.74)
[2023-01-25] MEDS ORDERED: Ondansetron 4 MG in Sodium Chloride 0.9% 50 ML IV ONE (02:41)
[2023-01-25] MEDS ORDERED: Ondansetron 4 MG/2 ML SDV IVPUSH ONE (02:44)
[2023-01-25 05:38] VITALS: BP 122/71; PULSE 72
== END 2023-01-25 05:38 | disposition home or self-care (01) ==
LOC: JD.ED 00:42
DX: R04.0 Epistaxis (principal); I10 Essential (primary) hypertension; E78.00 Pure hypercholesterolemia, unspecified; I25.10 Atherosclerotic heart disease of native coronary artery without angina pectoris; K21.9 Gastro-esophageal reflux disease without esophagitis; Z86.73 Personal history of transient ischemic attack (TIA), and cerebral infarction without residual deficits; E66.9 Obesity, unspecified; Z90.49 Acquired absence of other specified parts of digestive tract; Z90.710 Acquired absence of both cervix and uterus; Z79.899 Other long term (current) drug therapy; Z79.82 Long term (current) use of aspirin; Z88.2 Allergy status to sulfonamides; Z91.048 Other nonmedicinal substance allergy status; Z88.8 Allergy status to other drugs, medicaments and biological substances; Z88.1 Allergy status to other antibiotic agents; Z68.32 Body mass index [BMI] 32.0-32.9, adult
CPT/HCPCS: 30901; 36415; 71045; 80053; 83735; 84443; 84484; 85025; 93005; 96374; 96375; 99284; A9270; J0360; J2405; 93010

== ENCOUNTER 2023-02-17 12:56 | Emergency (ER) | payer MEDICARE, BC ==
[2023-02-17 13:43] LABS: BASOPHILS PERCENT AUTO 0.5 % (0.0-1.0); EOSINOPHILS ABSOLUTE AUTO 0.1 K/mm3 (0.0-0.4); EOSINOPHILS PERCENT AUTO 0.9 % (0.0-6.0); HEMATOCRIT 36.3 % (37.0-47.0); HEMOGLOBIN 12.3 gm/dl (12.0-16.0); IMMATURE GRAN ABSOLUTE AUTO 0.02 K/mm3 (0.00-0.05); IMMATURE GRAN PERCENT AUTO 0.4 % (0.0-0.4); LYMPHOCYTES ABSOLUTE AUTO 0.5 K/mm3 (1.0-4.8); LYMPHOCYTES PERCENT AUTO 8.1 % (24.0-44.0); MEAN CORPUSCULAR HGB CONC 33.9 g/dl (32.0-36.0); MEAN CORPUSCULAR VOLUME 91.4 fl (83.0-99.0); MEAN PLATELET VOLUME 8.3 fl (9.4-12.3); MONOCYTES ABSOLUTE AUTO 0.5 K/mm3 (0.0-0.8); MONOCYTES PERCENT AUTO 7.9 % (0.0-8.0); NEUTROPHILS ABSOLUTE AUTO 4.7 K/mm3 (1.8-7.7); NEUTROPHILS PERCENT AUTO 82.2 % (41.0-71.0); PLATELET COUNT,PLT 229 K/mm3 (150-400); RED BLOOD CELL COUNT 3.97 M/mm3 (4.10-5.30); WHITE BLOOD CELL COUNT,WBC 5.71 K/mm3 (3.9-11.3)
[2023-02-17 14:04] LABS: A/G RATIO 0.7 (1-2); ALBUMIN 3.1 g/dl (3.4-5.0); ANION GAP 13.4 (5-15); BILIRUBIN TOTAL 0.5 mg/dL (0.2-1.0); BUN/CREATININE RATIO 17.5 (14-18); CALCIUM 9.1 mg/dL (8.5-10.1); CREATININE 0.8 mg/dL (0.55-1.02); EST CRCL DRUG DOSING (CG) 42.88 mL/min; MAGNESIUM 1.8 mg/dL (1.8-2.4); POTASSIUM,K 4.4 mEq/L (3.5-5.1); PROTEIN TOTAL,TP 7.3 g/dl (6.4-8.2)
[2023-02-17 14:15] LABS: APPEARANCE,URINE CLEAR (Clear); BILIRUBIN,URINE NEGATIVE (Negative); COLOR,URINE YELLOW (Yellow); GLUCOSE,URINE NEGATIVE (Negative); KETONES,URINE NEGATIVE (Negative); LEUKOCYTE ESTERASE,URINE NEGATIVE (Negative); NITRITE,URINE NEGATIVE (Negative); OCCULT BLOOD,URINE NEGATIVE (Negative); PROTEIN,URINE NEGATIVE (Negative); UROBILINOGEN,URINE 0.2 (0.2-1.0)
[2023-02-17 14:24] LABS: CORONAVIRUS COVID-19 NAA NEGATIVE (NEGATIVE); INFLUENZA A NAA NEGATIVE (NEGATIVE); RESPIRATORY SYNCYTIAL VIR NAA NEGATIVE (NEGATIVE)
[2023-02-17 14:49] VITALS: BP 161/97; PULSE 74
[2023-02-17 15:36] LABS: BACTERIA,URINE NOT SEEN /hpf (FEW); EPITHELIAL CELLS,URINE 0-5 /hpf (0-5); MUCUS,URINE NOT SEEN /hpf (FEW); RBC,URINE 0-5 /hpf (0-5); WBC,URINE 0-5 /hpf (0-5)
== END 2023-02-17 14:48 | disposition home or self-care (01) ==
LOC: JD.ED 12:56
DX: G43.109 Migraine with aura, not intractable, without status migrainosus (principal); I25.10 Atherosclerotic heart disease of native coronary artery without angina pectoris; I10 Essential (primary) hypertension; I25.2 Old myocardial infarction; K21.9 Gastro-esophageal reflux disease without esophagitis; E66.9 Obesity, unspecified; Z68.32 Body mass index [BMI] 32.0-32.9, adult; Z79.82 Long term (current) use of aspirin; Z79.899 Other long term (current) drug therapy; Z88.8 Allergy status to other drugs, medicaments and biological substances; Z88.2 Allergy status to sulfonamides; Z91.018 Allergy to other foods; Z20.822 Contact with and (suspected) exposure to COVID-19
CPT/HCPCS: 0241U; 36415; 80053; 81001; 83735; 85025; 99284

== ENCOUNTER 2023-02-20 23:57 | Emergency (ER) | payer MEDICARE, BC ==
[2023-02-21] MEDS ORDERED: Aspirin 81 MG Tab.Chew PO ONE (00:02)
[2023-02-21 00:12] LABS: BASOPHILS PERCENT AUTO 0.7 % (0.0-1.0); EOSINOPHILS ABSOLUTE AUTO 0.1 K/mm3 (0.0-0.4); HEMATOCRIT 35.7 % (37.0-47.0); HEMOGLOBIN 12.2 gm/dl (12.0-16.0); IMMATURE GRAN ABSOLUTE AUTO 0.01 K/mm3 (0.00-0.05); IMMATURE GRAN PERCENT AUTO 0.2 % (0.0-0.4); LYMPHOCYTES ABSOLUTE AUTO 0.8 K/mm3 (1.0-4.8); LYMPHOCYTES PERCENT AUTO 18.3 % (24.0-44.0); MEAN CORPUSCULAR HEMOGLOBIN 31.4 pg (28.0-32.0); MEAN CORPUSCULAR HGB CONC 34.2 g/dl (32.0-36.0); MEAN PLATELET VOLUME 8.3 fl (9.4-12.3); MONOCYTES ABSOLUTE AUTO 0.5 K/mm3 (0.0-0.8); MONOCYTES PERCENT AUTO 12.3 % (0.0-8.0); NEUTROPHILS ABSOLUTE AUTO 2.8 K/mm3 (1.8-7.7); NEUTROPHILS PERCENT AUTO 65.5 % (41.0-71.0); PLATELET COUNT,PLT 230 K/mm3 (150-400); RED BLOOD CELL COUNT 3.88 M/mm3 (4.10-5.30); WHITE BLOOD CELL COUNT,WBC 4.31 K/mm3 (3.9-11.3)
[2023-02-21 00:41] LABS: A/G RATIO 0.8 (1-2); ALANINE AMINOTRANSFERASE,ALT 27 U/L (14-59); ALBUMIN 3.3 g/dl (3.4-5.0); ALKALINE PHOSPHATASE 90 U/L (46-116); ANION GAP 13.5 (5-15); ASPARTATE AMNIOTRANSFERASE,AST 23 U/L (15-37); BILIRUBIN TOTAL 0.4 mg/dL (0.2-1.0); BLOOD UREA NITROGEN,BUN 19 mg/dL (7-18); BUN/CREATININE RATIO 21.1 (14-18); CARBON DIOXIDE,CO2 26 mEq/L (21-32); CHLORIDE,CL 98 mEq/L (98-107); CREATININE 0.9 mg/dL (0.55-1.02); ESTIMATED GFR 64 mL/min (>60); GLUCOSE RANDOM 111 mg/dL (70-99); POTASSIUM,K 4.5 mEq/L (3.5-5.1); PROTEIN TOTAL,TP 7.6 g/dl (6.4-8.2); SODIUM,NA 133 mEq/L (136-145)
[2023-02-21 00:53] LABS: TROPONIN I HIGH SENSITIVITY 532 pg/mL (<=51)
[2023-02-21] MEDS ORDERED: Heparin Sodium 5,000 Units/ML Vial IVPUSH ONE (00:57)
[2023-02-21] MEDS ORDERED: Heparin Sodium/D5W 25,000 UNITS/500 ML BAG IV SCH (01:00)
[2023-02-21 01:10] LABS: INR 0.93
[2023-02-21 01:11] LABS: PTT,PARTIAL THROMBOPLSTIN TIME 30.2 SECONDS (21.7-31.4)
[2023-02-21 04:14] VITALS: BP 143/81; PULSE 65
== END 2023-02-21 04:09 ==
LOC: JD.ED 23:57
DX: R07.9 Chest pain, unspecified (principal); R78.4 Finding of other drugs of addictive potential in blood; E66.9 Obesity, unspecified; I25.10 Atherosclerotic heart disease of native coronary artery without angina pectoris; I10 Essential (primary) hypertension; I25.2 Old myocardial infarction; K21.9 Gastro-esophageal reflux disease without esophagitis; M19.90 Unspecified osteoarthritis, unspecified site; Z86.73 Personal history of transient ischemic attack (TIA), and cerebral infarction without residual deficits; Z79.82 Long term (current) use of aspirin; Z79.899 Other long term (current) drug therapy; Z88.1 Allergy status to other antibiotic agents; Z88.2 Allergy status to sulfonamides; Z88.8 Allergy status to other drugs, medicaments and biological substances
CPT/HCPCS: 36415; 70450; 71046; 80053; 83880; 84484; 85025; 85610; 85730; 93005; 96365; 96366; 99285; A9270; J1644; 93010; 99284

== ENCOUNTER 2023-07-29 09:59 | Emergency (ER) | payer MEDICARE, BC ==
[2023-07-29] MEDS: Oxymetazoline 0.05% Nasal Spray 30 ML Bottle NAS ONE (11:07)
[2023-07-29 12:03] VITALS: BP 184/95; PULSE 64
== END 2023-07-29 11:50 | disposition home or self-care (01) ==
LOC: JD.ED 09:59
DX: R04.0 Epistaxis (principal); I10 Essential (primary) hypertension; I25.10 Atherosclerotic heart disease of native coronary artery without angina pectoris; I25.2 Old myocardial infarction; E66.9 Obesity, unspecified; K21.9 Gastro-esophageal reflux disease without esophagitis; Z88.2 Allergy status to sulfonamides; Z88.8 Allergy status to other drugs, medicaments and biological substances; Z91.018 Allergy to other foods; Z79.82 Long term (current) use of aspirin; Z79.899 Other long term (current) drug therapy; Z90.49 Acquired absence of other specified parts of digestive tract; Z90.710 Acquired absence of both cervix and uterus; Z87.891 Personal history of nicotine dependence; Z68.32 Body mass index [BMI] 32.0-32.9, adult
CPT/HCPCS: 30901; 99284; A9270